=== PATIENT | female | born 1945 | race Caucasian/White ===

== ENCOUNTER 2016-05-14 20:14 | Emergency (ER) | payer MEDICARE, BC ==
[2016-05-14 20:32] VITALS: RESP 20
--- NOTE | 2016-05-14 21:19 | ED ---
General Adult HPI - General Source: patient, family, RN notes reviewed Mode of arrival: ambulatory Limitations: no limitations <Arnav Salcedo - Last Filed: 05/14/16 21:11> <Darinel Valderrama - Last Filed: 05/14/16 22:42> - General Chief complaint: Extremity Injury, Upper Stated complaint: Fall-Knee/Hand Injury - History of Present Illness Initial comments: Chief complaint and history of present illness 70-year-old female here with her . Patient reports that she slipped and fell 4 days ago at home injuring her left hand and left knee. Denies any head neck injuries. No loss of consciousness. Patient has ecchymosis to her left knee and both dorsal and volar surface of her nondominant left hand. (Arnav Salcedo) - Related Data Home Medications Medication Instructions Recorded Confirmed Propranolol HCl [Inderal] 60 mg PO DAILY 09/10/14 05/14/16 Previous Rx's Medication Instructions Recorded Ibuprofen [Motrin] 600 mg PO Q8HR PRN #20 tab 05/14/16 Allergies Allergy/AdvReac Type Severity Reaction Status Date / Time red dye Allergy Rash/Hives Verified 05/14/16 20:32 Review of Systems ROS Other: All systems not noted in ROS Statement are negative. <Arnav Salcedo - Last Filed: 05/14/16 21:11> ROS Other: All systems not noted in ROS Statement are negative. <Darinel Valderrama - Last Filed: 05/14/16 22:42> ROS Statement: Those systems with pertinent positive or pertinent negative responses have been documented in the HPI. Review of systems. Patient denying any visual acuity changes no headache no stiff neck no neck pain no chest pain shortness of breath. No GI or complaints or problems. No neuro deficits. Her complaints are pain mild swelling to her nondominant left hand which is also ecchymotic on both the dorsal and volar surface. Also mild discomfort and discoloration to her left patellar region. All systems otherwise reviewed. Past medical problems significant for type 2 diabetes controlled by diet. History of migraines. Hypercholesterolemia. Surgeries include appendectomy, tonsillectomy hysterectomy hiatal hernia. The patient's also a total right knee. The patient's family history significant for a sister had cancer of unknown type. Patient denies ALLERGIES she does not smoke denies alcohol use (Arnav Salcedo) Past Medical History Past Medical History: Diabetes Mellitus Additional Past Medical History / Comment(s): MIGRAINE HEADACHE History of Any Multi-Drug Resistant Organisms: None Reported Past Surgical History: Adenoidectomy, Appendectomy, Bladder Surgery, Hernia Repair, Hysterectomy, Joint Replacement, Tonsillectomy Additional Past Surgical History / Comment(s): HIATAL HERNIA REPAIR, RIGHT TOTAL KNEE,LEFT KNEE ARTHROSCOPIC, Past Anesthesia/Blood Transfusion Reactions: No Reported Reaction Past Psychological History: No Psychological Hx Reported Smoking Status: Former smoker Past Alcohol Use History: None Reported Past Drug Use History: None Reported - Past Family History Sister(s) Family Medical History: Cancer <Arnav Salcedo - Last Filed: 05/14/16 21:11> General Exam Limitations: no limitations <Arnav Salcedo - Last Filed: 05/14/16 21:11> <Darinel Valderrama - Last Filed: 05/14/16 22:42> - General Exam Comments Initial Comments: General: The patient is awake and alert, complaining of pain to her left nondominant hand. And discomfort to her left knee. Vital signs temp 97.2 pulse 55 respiratory rate 20 pulse ox 98% on room air with a blood pressure 191/77, this will be repeated before the patient leaves. Eye: Pupils are equal, round and reactive to light, extra-ocular movements are intact ; there is normal conjunctiva bilaterally. No signs of icterus. Ears, nose, mouth and throat: There are moist mucous membranes .. Neck: The neck is supple, there is no tenderness ., Full range of motion without complaint of discomfort. Cardiovascular: No chest wall pain, no complaint of any palpitations. Respiratory: No complaint of shortness of breath or respiratory difficulty. Gastrointestinal: No complaint of any abdominal pain. Back: There is no tenderness , full range of motion to her back. Musculoskeletal: All joints and extremities normal except for pain, mild swelling and ecchymosis to her nondominant left hand. Range of motion is near normal but with discomfort. Adam test normal left hand. No bony crepitus. Examination of left knee shows mild ecchymosis to the patella. No pain with varus valgus or drawer testing. No peripheral edema. No numbness no tingling. Neurological: No neuro deficits. Skin: No complaint of any rash. (Arnav Salcedo) Disposition <Arnav Salcedo - Last Filed: 05/14/16 21:11> <Darinel Valderrama - Last Filed: 05/14/16 22:42> Clinical Impression: Metacarpal bone fracture, Contusion Disposition: HOME SELF-CARE Condition: Good Instructions: Hand Fracture (ED), Contusion in Adults (ED) Prescriptions: Ibuprofen [Motrin] 600 mg PO Q8HR PRN #20 tab PRN Reason: Pain Referrals: Val Walsh MD [Primary Care Provider] - 1-2 days
--- NOTE | 2016-05-14 21:49 | XR ---
EXAMINATION TYPE: XR knee complete LT DATE OF EXAM: 05/14/2016 9:28 PM COMPARISON: NONE HISTORY: Inferior left patella pain after fall. TECHNIQUE: 3 radiographic views of the left knee were obtained. FINDINGS: Spurring is seen anteriorly of the distal femur projecting away from the joint space and ma y relate to a sessile osteochondroma. Additionally there is subtle irregularity of the trabecular pat tern of the visualized fibula and its metaphysis and diaphysis. Well-corticated fragment is seen at t he superior pole of the patella and may relate to prior fracture. No acute fracture or dislocation is seen. Mild calcific atheromatous changes are seen of the femoral artery. IMPRESSION: 1. No evidence of acute fracture or dislocation. 2. Well-corticated fragment of the superior patellar pole likely related to old healed fracture. 3. Spurring away from the joint space of the distal femur anteriorly that may relate to a sessile ost eochondroma. 4. Additional subtle trabecular irregularity of the visualized fibular proximal metaphysis and diaphy sis. Dedicated fibular radiographs are recommended on a nonemergent basis.
--- NOTE | 2016-05-14 21:54 | XR ---
EXAMINATION TYPE: XR hand complete LT DATE OF EXAM: 05/14/2016 9:28 PM COMPARISON: NONE HISTORY: Left hand pain after fall with bruising of the third through fifth metacarpals. TECHNIQUE: 3 radiographic views of the left hand were obtained. FINDINGS: There is a small fragment of bone avulsed from the volar aspect of the base of the middle t hird phalanx. Additionally there is an obliquely oriented minimally displaced fracture of the base of the fifth metacarpal with 1 mm radial displacement. Bone mineralization is slightly osteopenic. Over lying soft tissue swelling is seen of the third digit and radial aspect of the hand. IMPRESSION: 1. Minimally displaced oblique fracture of the base of the fifth metacarpal. 2. Volar plate avulsion injury at the proximal interphalangeal joint of the third digit.
[2016-05-14 22:57] VITALS: BP 168/71; PULSE 59; TEMP 97.9
== END 2016-05-14 22:55 | disposition home or self-care (01) ==
LOC: EC 20:14
DX: S62.317A Displaced fracture of base of fifth metacarpal bone, left hand, initial encounter for closed fracture (principal); S80.02XA Contusion of left knee, initial encounter; S61.203A Unspecified open wound of left middle finger without damage to nail, initial encounter; W01.0XXA Fall on same level from slipping, tripping and stumbling without subsequent striking against object, initial encounter; Z79.899 Other long term (current) drug therapy; Z87.891 Personal history of nicotine dependence
CPT/HCPCS: 29125; 99283

== ENCOUNTER 2016-11-21 07:50 | Day surgery (SDC) | payer MEDICARE, BC ==
[2016-11-17 11:18] VITALS: BMI 30.2
[~2016-11-21 07:50] MED LIST: LACTATED RINGERS 1,000 ML IV SCH
[2016-11-21 08:12] VITALS: RESP 16; TEMP 97.8
[2016-11-21] MEDS ORDERED: LIDOCAINE 1% 20 ML VIAL (10MG/ML) FOR IV START INTRADERMA ONE (08:25)
[2016-11-21 08:30] LABS: Glucose,Whole Blood 129 mg/dL (75-99)
[2016-11-21] MEDS ORDERED: LIDOCAINE 1% INJ 10MG/ML (20 ML MDV) ONE (08:47)
[2016-11-21] MEDS ORDERED: PROPOFOL 10 MG/ML 20 ML VIAL IV ONE (08:47)
[2016-11-21 09:25] VITALS: BP 127/65; PULSE 49
--- NOTE | 2016-11-22 14:35 | P.PCN ---
Date of Procedure: 11/21/16 Procedure(s) Performed: Procedure: Esophagogastroduodenoscopy and biopsy. Preoperative diagnosis: Nausea and epigastric pain. Postoperative diagnosis: Small amount of retained partially digested food in the stomach. Antral gastritis with prepyloric small ulceration but no mechanical obstruction to the gastric outlet. Biopsies were obtained. Brief clinical history: The patient is a 71-year-old female who is referred for this evaluation because of nausea and epigastric pain. The patient has history of reflux disease and had prior fundoplication. On a prior upper endoscopy in August 2014 she had evidence of hiatal hernia and low-grade distal esophagitis as well as gastritis. This evaluation is to assess for peptic ulcer disease, complicated reflux disease or other pathology. Procedure: With the patient on her left lateral decubitus position and after informed consent and adequate sedation, I passed the Olympus-GIF 160 video upper endoscope through the cricopharyngeus down the esophagus. The distal esophagus showed no obvious abnormalities. There was a small sliding hiatal hernia as previously described. In the retroflex view in the cardia one can appreciate the fundoplication that she had which appeared to be in place although in the forward-viewing view the hiatal hernia measuring between 1-2 cm is obviously seen as before. There was no restricting stricture or Mora's esophagus. The stomach was insufflated with air and inspected in detail including the retroflex view in the cardia as mentioned. There was some mottling and erythema in the antrum and in the prepyloric area there was edema and nodularity and a small ulceration with no mechanical obstruction to the gastric outlet. There was a small amount of partially digested food in the fundus of the stomach. Pyloric channel, duodenal bulb, post bulbar area and descending duodenum showed minimal erythema. Because of her symptoms I obtained multiple biopsies from the duodenum in addition to biopsies from the antrum and esophagus then the endoscope was withdrawn. The patient tolerated the procedure well. Plan: I summarized the findings to the patient and her family. Will await biopsy results and make further plans based on her course and biopsy results. She will follow-up with you as planned.
== END 2016-11-21 09:30 | disposition home or self-care (01) ==
LOC: ORWHC2ENDO 07:50
DX: K29.40 Chronic atrophic gastritis without bleeding (principal); K25.9 Gastric ulcer, unspecified as acute or chronic, without hemorrhage or perforation; K20.9 Esophagitis, unspecified; K44.9 Diaphragmatic hernia without obstruction or gangrene; I10 Essential (primary) hypertension; E78.5 Hyperlipidemia, unspecified; Z87.891 Personal history of nicotine dependence; E11.9 Type 2 diabetes mellitus without complications; Z79.84 Long term (current) use of oral hypoglycemic drugs; R63.4 Abnormal weight loss; Z79.82 Long term (current) use of aspirin; Z79.899 Other long term (current) drug therapy; Z88.8 Allergy status to other drugs, medicaments and biological substances; Z91.02 Food additives allergy status
CPT/HCPCS: 88305; 88342; 43239; J2001; J2704

== ENCOUNTER → 2016-11-24 | Outpatient (CLI) | payer MEDICARE, BC ==
--- NOTE | 2016-11-24 09:01 | US ---
EXAMINATION TYPE: US abdomen complete DATE OF EXAM: 11/24/2016 COMPARISON: NONE CLINICAL HISTORY: R11.0 Nausea. Patient has infection that led to bowel blockages since October, on antibiotic and had first BM today. EXAM MEASUREMENTS: Liver Length: 13.2 cm Gallbladder Wall: 0.1 cm CBD: 0.5 cm Spleen: 7.8 cm Right Kidney: 9.2 x 3.9 x 4.4 cm Left Kidney: 9.4 x 3.7 x 5.0 cm bowel gas and body habitus Pancreas: wnl Liver: wnl Gallbladder: wnl Evidence for sonographic Grissom's sign: no CBD: wnl Spleen: wnl Right Kidney: wnl Left Kidney: wnl Upper IVC: wnl Abd Aorta: wnl The liver is homogenous. The intrahepatic portion of the IVC and proximal abdominal aorta are within normal limits. There is no evidence of cholelithiasis. Common bile duct is unremarkable. The visu alized portions of the pancreas are homogenous. The spleen is unremarkable. Kidneys are symmetric a nd free of hydronephrosis. No renal lesions are seen. IMPRESSION: No distinct abnormality seen.
== END | disposition home or self-care (01) ==
LOC: RADUSWWP 08:07
DX: R11.0 Nausea (principal)
CPT/HCPCS: 76700

== ENCOUNTER 2017-06-12 13:29 | Observation (INO) | payer MEDICARE, BC ==
--- NOTE | 2017-06-12 13:59 | ED ---
General Adult HPI - General Chief complaint: Shortness of Breath Stated complaint: SOB Time Seen by Provider: 06/12/17 13:30 Source: patient, RN notes reviewed Mode of arrival: ambulatory Limitations: no limitations - History of Present Illness Initial comments: This 72-year-old female presents emergency Department stating for the last 2 weeks since she's gotten back from [place] she has had pressure on her chest and shortness of breath. Patient states she's done 2 courses of antibiotics. Patient states the chest pressure continues it's constant. Patient states the shortness of breath continues. Patient denies any fever chills per patient denies coughing up any sputum but she is coughing quite a bit. Patient states occasionally she has palpitations. Patient denies any lightheadedness dizziness or near syncopal episode. Patient states she feels very tired but no focal weakness or numbness. Patient denies any headache. Patient denies abdominal pain patient denies nausea vomiting diarrhea. - Related Data Home Medications Medication Instructions Recorded Confirmed Aspirin 81 mg PO DAILY 11/17/16 06/12/17 Atorvastatin [Lipitor] 10 mg PO HS 11/17/16 06/12/17 Lisinopril [Zestril] 5 mg PO DAILY 11/17/16 06/12/17 Multivit with Calcium,Iron,Min 1 tab PO DAILY 11/17/16 06/12/17 [Women's Multivitamin] [place]-3 Fatty Acids/Fish Oil [Fish 1 cap PO DAILY 11/17/16 06/12/17 Oil 1,000 mg Softgel] sitaGLIPtin [Januvia] 100 mg PO DAILY 11/17/16 06/12/17 Sulfamethox-Tmp 800-160Mg [Bactrim 1 tab PO BID 06/12/17 06/12/17 DS 800-160 mg] predniSONE 20 mg PO BID 06/12/17 06/12/17 Allergies Allergy/AdvReac Type Severity Reaction Status Date / Time red dye Allergy Rash/Hives Verified 06/12/17 14:44 quinine AdvReac affected Verified 06/12/17 14:44 vision,confusion Review of Systems ROS Statement: Those systems with pertinent positive or pertinent negative responses have been documented in the HPI. ROS Other: All systems not noted in ROS Statement are negative. Past Medical History Past Medical History: Diabetes Mellitus, Hypertension, Osteoarthritis (OA) Additional Past Medical History / Comment(s): MIGRAINES, nauseated w/eating, abd. pain recently, weight loss, IBS, SOB w/exertion, recent UTI, occasional issues w/bradycardia History of Any Multi-Drug Resistant Organisms: None Reported Past Surgical History: Adenoidectomy, Appendectomy, Bladder Surgery, Hernia Repair, Hysterectomy, Joint Replacement, Tonsillectomy Additional Past Surgical History / Comment(s): HIATAL HERNIA REPAIR, RIGHT TOTAL KNEE,LEFT KNEE ARTHROSCOPIC Past Anesthesia/Blood Transfusion Reactions: No Reported Reaction Past Psychological History: No Psychological Hx Reported Smoking Status: Former smoker Past Alcohol Use History: None Reported Past Drug Use History: None Reported - Past Family History Sister(s) Family Medical History: Cancer General Exam - General Exam Comments Initial Comments: GENERAL: Patient is well-developed and well-nourished. Patient is nontoxic and well- hydrated and is in mild distress. ENT: Neck is soft and supple. No significant lymphadenopathy is noted. Oropharynx is clear. Moist mucous membranes. Neck has full range of motion without eliciting any pain. EYES: The sclera were anicteric and conjunctiva were pink and moist. Extraocular movements were intact and pupils were equal round and reactive to light. Eyelids were unremarkable. PULMONARY: Unlabored respirations. Good breath sounds bilaterally. No audible rales rhonchi or wheezing was noted. CARDIOVASCULAR: There is a regular rate and rhythm without any murmurs gallops or rubs. ABDOMEN: Soft and nontender with normal bowel sounds. No palpable organomegaly was noted. There is no palpable pulsatile mass. SKIN: Skin is clear with no lesions or rashes and otherwise unremarkable. NEUROLOGIC: Patient is alert and oriented x3. Cranial nerves II through XII are grossly intact. Motor and sensory are also intact. Normal speech, volume and content. Symmetrical smile. MUSCULOSKELETAL: Normal extremities with adequate strength and full range of motion. LYMPHATICS: No significant lymphadenopathy is noted PSYCHIATRIC: Normal psychiatric evaluation. Limitations: no limitations Course Vital Signs 06/12/17 13:30 Temperature 98 F Pulse Rate 73 Respiratory 20 Rate Blood Pressure 123/71 O2 Sat by Pulse 98 Oximetry Medical Decision Making - Medical Decision Making EKG shows normal sinus rhythm at 62 bpm DC interval 208 QRS is 96 Q-T intervals 416 QTC is 422 per patient's EKG shows no ST segment elevation or depression or T wave abnormalities are noted. Chest x-ray shows no acute abnormality. Patient describes her chest pain and shortness of breath as worsening with exertion I spoke with Dr. Ziegler he agreed to admit the patient admitted the patient and wrote admitting orders - Lab Data Result diagrams: 06/12/17 14:00 06/12/17 14:00 Lab Results 06/12/17 06/12/17 06/12/17 Range/Units 14:00 14:00 14:00 WBC 7.5 (3.8-10.6) k/uL RBC 4.00 (3.80-5.40) m/uL Hgb 12.7 (11.4-16.0) gm/dL Hct 37.7 (34.0-46.0) % MCV 94.1 (80.0-100.0) fL MCH 31.7 (25.0-35.0) pg MCHC 33.7 (31.0-37.0) g/dL RDW 12.0 (11.5-15.5) % Plt Count 297 (150-450) k/uL Neutrophils % 87 % Lymphocytes % 8 % Monocytes % 5 % Eosinophils % 0 % Basophils % 0 % Neutrophils # 6.5 (1.3-7.7) k/uL Lymphocytes # 0.6 L (1.0-4.8) k/uL Monocytes # 0.4 (0-1.0) k/uL Eosinophils # 0.0 (0-0.7) k/uL Basophils # 0.0 (0-0.2) k/uL PT (9.0-12.0) sec INR (<1.2) APTT (22.0-30.0) sec D-Dimer (<0.60) mg/L FEU Sodium 134 L (137-145) mmol/L Potassium 5.3 H (3.5-5.1) mmol/L Chloride 99 (98-107) mmol/L Carbon Dioxide 20 L (22-30) mmol/L Anion Gap 15 mmol/L BUN 19 H (7-17) mg/dL Creatinine 1.03 (0.52-1.04) mg/dL Est GFR (CKD-EPI)AfAm 62 (>60 ml/min/1.73 sqM) Est GFR (CKD-EPI)NonAf 54 (>60 ml/min/1.73 sqM) Glucose 313 H (74-99) mg/dL Calcium 9.9 (8.4-10.2) mg/dL Magnesium 1.9 (1.6-2.3) mg/dL Total Bilirubin 0.6 (0.2-1.3) mg/dL AST 27 (14-36) U/L ALT 39 (9-52) U/L Alkaline Phosphatase 74 (38-126) U/L Total Creatine Kinase 28 L (30-135) U/L CK-MB (CK-2) 1.0 (0.0-2.4) ng/mL CK-MB (CK-2) Rel Index 3.6 Troponin I <0.012 (0.000-0.034) ng/mL NT-Pro-B Natriuret Pep pg/mL Total Protein 6.7 (6.3-8.2) g/dL Albumin 4.1 (3.5-5.0) g/dL 06/12/17 06/12/17 Range/Units 14:00 14:00 WBC (3.8-10.6) k/uL RBC (3.80-5.40) m/uL Hgb (11.4-16.0) gm/dL Hct (34.0-46.0) % MCV (80.0-100.0) fL MCH (25.0-35.0) pg MCHC (31.0-37.0) g/dL RDW (11.5-15.5) % Plt Count (150-450) k/uL Neutrophils % % Lymphocytes % % Monocytes % % Eosinophils % % Basophils % % Neutrophils # (1.3-7.7) k/uL Lymphocytes # (1.0-4.8) k/uL Monocytes # (0-1.0) k/uL Eosinophils # (0-0.7) k/uL Basophils # (0-0.2) k/uL PT 10.6 (9.0-12.0) sec INR 1.1 (<1.2) APTT 20.0 L (22.0-30.0) sec D-Dimer 0.38 (<0.60) mg/L FEU Sodium (137-145) mmol/L Potassium (3.5-5.1) mmol/L Chloride (98-107) mmol/L Carbon Dioxide (22-30) mmol/L Anion Gap mmol/L BUN (7-17) mg/dL Creatinine (0.52-1.04) mg/dL Est GFR (CKD-EPI)AfAm (>60 ml/min/1.73 sqM) Est GFR (CKD-EPI)NonAf (>60 ml/min/1.73 sqM) Glucose (74-99) mg/dL Calcium (8.4-10.2) mg/dL Magnesium (1.6-2.3) mg/dL Total Bilirubin (0.2-1.3) mg/dL AST (14-36) U/L ALT (9-52) U/L Alkaline Phosphatase (38-126) U/L Total Creatine Kinase (30-135) U/L CK-MB (CK-2) (0.0-2.4) ng/mL CK-MB (CK-2) Rel Index Troponin I (0.000-0.034) ng/mL NT-Pro-B Natriuret Pep 216 pg/mL Total Protein (6.3-8.2) g/dL Albumin (3.5-5.0) g/dL Disposition Clinical Impression: Chest pain on exertion, Dyspnea Disposition: ADMITTED IP TO THIS HOSP Referrals: Val Walsh MD [Primary Care Provider] - 1-2 days Time of Disposition: 15:20
--- NOTE | 2017-06-12 14:21 | XR ---
EXAMINATION TYPE: XR chest 2V DATE OF EXAM: 06/12/2017 COMPARISON: NONE HISTORY: SOB and chest pain. TECHNIQUE: Frontal and lateral views of the chest are obtained. FINDINGS: There is no focal air space opacity, pleural effusion, or pneumothorax seen. The cardiac silhouette size is within normal limits with atherosclerotic change in aorta. The osseous structure s are demineralized. Clips near [place]. IMPRESSION: No acute cardiopulmonary process.
[2017-06-12 14:28] LABS: Albumin 4.1 g/dL (3.5-5.0); Calcium 9.9 mg/dL (8.4-10.2); Magnesium 1.9 mg/dL (1.6-2.3); Potassium 5.3 mmol/L (3.5-5.1); Total Bilirubin 0.6 mg/dL (0.2-1.3); Total Protein 6.7 g/dL (6.3-8.2)
[2017-06-12 14:30] LABS: Basophils % (A) 0 %; Eosinophils % (A) 0 %; HCT 37.7 % (34.0-46.0); HGB 12.7 gm/dL (11.4-16.0); Lymphocytes # (A) 0.6 k/uL (1.0-4.8); Lymphocytes % (A) 8 %; MCH 31.7 pg (25.0-35.0); MCHC 33.7 g/dL (31.0-37.0); MCV 94.1 fL (80.0-100.0); Mean Platelet Volume 7.2; Monocytes # (A) 0.4 k/uL (0-1.0); Monocytes % (A) 5 %; Neutrophils # (A) 6.5 k/uL (1.3-7.7); Neutrophils % (A) 87 %; Platelet Count 297 k/uL (150-450); WBC 7.5 k/uL (3.8-10.6)
[2017-06-12 14:44] LABS: Creatine Kinase 28 U/L (30-135)
[2017-06-12 14:46] LABS: D-Dimer 0.38 mg/L FEU (<0.60); INR 1.1 (<1.2); Prothrombin Time 10.6 sec (9.0-12.0)
[2017-06-12 14:56] LABS: Troponin I <0.012 ng/mL (0.000-0.034)
[2017-06-12] MEDS ORDERED: NITROGLYCERIN SL TABS 0.4 MG TAB SUBLINGUAL PRN (15:21)
--- NOTE | 2017-06-12 16:49 | P.HPIM ---
History of Present Illness H&P Date: 06/12/17 Chief Complaint: Chest pressure and shortness of breath Cindy Huerta is a 72-year-old female patient of Dr. begum who presented to [facility] emergency room with a chief complaint of chest pressure and shortness of breath and cough, patient states that her symptoms started 2 weeks ago when she returned from a trip in [place], she was seen by her primary care physician and was prescribed 2 courses of antibiotic for sinusitis and bronchitis, however she continued to have worsening shortness of breath and chest discomfort, she decided to come to emergency room for further evaluation. Patient stated that she smoked for a short while in her early adulthood she quit 53 years ago she was never diagnosed with asthma or emphysema. She was exposed to smoke in the casino in [place]. Patient denies ever having any heart problems she denies any history of coronary artery disease no history of congestive heart failure or valvular heart disease. Possibility of pulmonary embolism was entertained in the emergency room patient had a d-dimer that was normal at 0.38. Patient was admitted to medical floor for further evaluation and treatment cardiology consultation was requested. Past Medical History Past Medical History: Diabetes Mellitus, Hypertension, Osteoarthritis (OA) Additional Past Medical History / Comment(s): MIGRAINES, nauseated w/eating, abd. pain recently, weight loss, IBS, SOB w/exertion, recent UTI, occasional issues w/bradycardia History of Any Multi-Drug Resistant Organisms: None Reported Past Surgical History: Adenoidectomy, Appendectomy, Bladder Surgery, Hernia Repair, Hysterectomy, Joint Replacement, Tonsillectomy Additional Past Surgical History / Comment(s): HIATAL HERNIA REPAIR, RIGHT TOTAL KNEE,LEFT KNEE ARTHROSCOPIC Past Anesthesia/Blood Transfusion Reactions: No Reported Reaction Past Psychological History: No Psychological Hx Reported Smoking Status: Former smoker Past Alcohol Use History: None Reported Past Drug Use History: None Reported - Past Family History Sister(s) Family Medical History: Cancer Medications and Allergies Home Medications Medication Instructions Recorded Confirmed Type Aspirin 81 mg PO DAILY 11/17/16 06/12/17 History Atorvastatin [Lipitor] 10 mg PO HS 11/17/16 06/12/17 History Lisinopril [Zestril] 5 mg PO DAILY 11/17/16 06/12/17 History Multivit with Calcium,Iron,Min 1 tab PO DAILY 11/17/16 06/12/17 History [Women's Multivitamin] [place]-3 Fatty Acids/Fish Oil [Fish 1 cap PO DAILY 11/17/16 06/12/17 History Oil 1,000 mg Softgel] sitaGLIPtin [Januvia] 100 mg PO DAILY 11/17/16 06/12/17 History Sulfamethox-Tmp 800-160Mg [Bactrim 1 tab PO BID 06/12/17 06/12/17 History DS 800-160 mg] predniSONE 20 mg PO BID 06/12/17 06/12/17 History Allergies Allergy/AdvReac Type Severity Reaction Status Date / Time red dye Allergy Rash/Hives Verified 06/12/17 14:44 quinine AdvReac affected Verified 06/12/17 14:44 vision,confusion Physical Exam Vitals: Vital Signs Temp Pulse Pulse Resp BP BP Pulse Ox 06/12/17 16:09 97.8 F 64 18 148/99 99 06/12/17 15:47 97.8 F 60 18 167/81 97 06/12/17 15:00 70 18 150/68 98 06/12/17 13:30 98 F 73 20 123/71 98 Intake and Output 06/12/17 06/12/17 06/12/17 06:59 14:59 22:59 Other: Weight 69.853 kg 72.2 kg In general patient is alert and oriented 3 in no apparent distress HEENT head normocephalic and atraumatic Neck is supple no JVD no goiter no lymphadenopathy no carotid bruit Chest exam reveals a few scattered crackles no wheezing Cardiac exam reveals regular heart sounds S1 and S2 no gallops no murmurs Abdomen is soft nontender no organomegaly with normal bowel sounds Extremity exam reveals no edema no cyanosis or clubbing Neurological examination reveals no gross focal deficit Results CBC & Chem 7: 06/12/17 14:00 06/12/17 14:00 Labs: Abnormal Lab Results - Last 24 Hours (Table) 06/12/17 06/12/17 06/12/17 Range/Units 14:00 14:00 14:00 Lymphocytes # 0.6 L (1.0-4.8) k/uL APTT (22.0-30.0) sec Sodium 134 L (137-145) mmol/L Potassium 5.3 H (3.5-5.1) mmol/L Carbon Dioxide 20 L (22-30) mmol/L BUN 19 H (7-17) mg/dL Glucose 313 H (74-99) mg/dL Total Creatine Kinase 28 L (30-135) U/L 06/12/17 Range/Units 14:00 Lymphocytes # (1.0-4.8) k/uL APTT 20.0 L (22.0-30.0) sec Sodium (137-145) mmol/L Potassium (3.5-5.1) mmol/L Carbon Dioxide (22-30) mmol/L BUN (7-17) mg/dL Glucose (74-99) mg/dL Total Creatine Kinase (30-135) U/L Assessment and Plan Plan: #1 chest pressure and discomfort for the last 2 weeks, patient was evaluated in the emergency room EKG was negative troponin was within normal limits and d- dimer within normal limits she was admitted to 24-hour observation cardiology consult was initiated. Will check echocardiogram #2 shortness of breath, chest x-ray is within normal limits, will check pulmonary function test. #3 underlying history of hypertension maintained on Zestril will resume #4 underlying history of hyperlipidemia maintained on Lipitor continue #5 underlying history of [id number] diabetes mellitus maintained on Januvia 100 mg daily Will continue, will check hemoglobin A1c Will cover was insulin to sliding scale. At this time plan is to check echocardiogram, check pulmonary function test, await cardiology consult will follow closely
[2017-06-12] MEDS ORDERED: ASPIRIN 81 MG PO SCH (17:00)
[2017-06-12 17:14] LABS: Glucose,Whole Blood 210 mg/dL (75-99)
[2017-06-12] MEDS: INSULIN ASPART 100 UNIT/ML 1 ML 10 ML VIAL SQ SCH (18:17)
[2017-06-12] MEDS: cefTRIAXone IN SWFI 1,000 MG/10 ML SYRINGE IVP SCH (18:33)
[2017-06-12] MEDS: NITROGLYCERIN OINT 1 INCH/GM PACKET TOPICAL SCH (18:33)
[2017-06-12 20:46] LABS: Glucose,Whole Blood 174 mg/dL (75-99)
[2017-06-12] MEDS: ENOXAPARIN 40 MG/0.4 ML SYRINGE SQ SCH (20:53)
[2017-06-12] MEDS: guaiFENesin 600 MG TABLET.ER PO SCH (20:53)
[2017-06-12] MEDS ORDERED: FAMOTIDINE 20 MG TAB PO SCH (21:00)
[2017-06-12] MEDS ORDERED: ATORVASTATIN 10 MG TAB PO SCH (21:00)
[2017-06-12] MEDS ORDERED: SULFAMETHOX-TMP 800-160MG 1 EACH TAB PO SCH (21:00)
[2017-06-12 21:04] LABS: Creatine Kinase 26 U/L (30-135)
[2017-06-12 21:18] LABS: Creatine Kinase MB 0.7 ng/mL (0.0-2.4); Troponin I <0.012 ng/mL (0.000-0.034)
[2017-06-13] MEDS: NITROGLYCERIN OINT 1 INCH/GM PACKET TOPICAL SCH ×2 (00:26→05:00)
[2017-06-13 03:10] LABS: Cholesterol 157 mg/dL (<200); HDL Cholesterol 48 mg/dL (40-60); LDL Cholesterol,Calculated 60 mg/dL (0-99); Triglycerides 244 mg/dL (<150)
[2017-06-13 03:20] LABS: Creatine Kinase 23 U/L (30-135)
[2017-06-13 03:33] LABS: Creatine Kinase MB 0.7 ng/mL (0.0-2.4); Troponin I <0.012 ng/mL (0.000-0.034)
[2017-06-13 06:47] LABS: Glucose,Whole Blood 123 mg/dL (75-99)
[2017-06-13 08:15] VITALS: RESP 18
[2017-06-13] MEDS: INSULIN ASPART 100 UNIT/ML 1 ML 10 ML VIAL SQ SCH ×2 (08:25→15:40)
[2017-06-13] MEDS ORDERED: LINAGLIPTIN 5 MG TABLET PO SCH (09:00)
[2017-06-13] MEDS ORDERED: ASPIRIN 325 MG TAB PO SCH (09:00)
[2017-06-13] MEDS ORDERED: OMEGA 3 1000MG PO SCH (09:00)
[2017-06-13] MEDS ORDERED: LISINOPRIL 5 MG TAB PO SCH (09:00)
[2017-06-13] MEDS ORDERED: REGADENOSON 0.4 MG/5 ML SYRINGE IV ONE (09:39)
[2017-06-13] MEDS ORDERED: AMINOPHYLLINE 500 MG/20 ML VIAL IV PRN (09:39)
[2017-06-13] MEDS ORDERED: ASPIRIN 81 MG PO SCH (09:45)
--- NOTE | 2017-06-13 09:58 | P.CRDCN ---
History of Present Illness Consult date: 06/13/17 History of present illness: This is Buster is a pleasant 72-year-old female past medical history significant for hypertension, dyslipidemia and diabetes mellitus. We've been asked to see the patient in consultation for complaints of chest pain. She denies history of coronary artery disease and has never seen a broth setter for any reason. She states approximately 2 weeks ago she was on vacation in [place] and she had a heavy sensation in her chest. This was intermittent and not associated with any other symptoms. There is no radiation of the pain at that time. After arriving home she saw her primary care physician in the office and was diagnosed with sinus infection started on oral steroids and antibiotics. Throughout the first week she continued to have heavy sensation in her chest as well as shortness of breath associated with exertion. She states she would start exerting herself she would start coughing and becoming acutely short of breath. After these symptoms started she started with a heaviness in her chest as well. It seemed as if she could not catch her breath. She denies radiation of the pain to her arms neck back or jaw. She denies associated dizziness, palpitations, nausea, vomiting or diaphoresis. She failed to feel any better after the antibiotics were completed saw her primary care physician again and was started on a second antibiotic. She is 4 days into that second antibiotic and is feeling no better. She states yesterday she was in the yard helping her with mild yard cleanup-type activities and she again felt acutely short of breath with this mild exertion started coughing and had a heaviness in her chest. EKG reveals sinus mechanism with first-degree AV block and nonspecific ST abnormalities noted. There is no old for comparison. Chest x-ray is negative for an acute cardiopulmonary process. Laboratory data reviewed, hemoglobin 12.7, platelets 297, d-dimer 0.38, sodium 134, potassium 5.3, creatinine 1.03, cardiac enzymes negative 3, LDL 60, HDL 48. Current cardiac medications include aspirin 81 mg daily, atorvastatin 10 mg daily, lisinopril 5 mg daily. She also takes Januvia. Review of Systems At this time my exam: CONSTITUTIONAL: Denies fever. Denies chills. EYES: Denies blurred vision. Denies vision changes. Denies eye pain. EARS, NOSE, MOUTH & THROAT: Denies headache. Denies sore throat. Denies ear pain. CARDIOVASCULAR: Denies chest pain. Complains of exertional shortness of breath. Denies orthopnea. Denies PND. Denies palpitations. RESPIRATORY: Complains of dry cough. GASTROINTESTINAL: Denies abdominal pain. Denies diarrhea. Denies constipation. Denies nausea. Denies vomiting. MUSCULOSKELETAL: Denies myalgias. INTEGUMENTARY: Denies pruitis. Denies rash. NEUROLOGIC: Denies numbness. Denies tingling. Denies weakness. PSYCHIATRIC: Denies anxiety. Denies depression. ENDOCRINE: Denies fatigue. Denies weight change. Denies polydipsia. Denies polyurina. GENITOURINARY: Denies burning, hematuria or urgency with micturation. HEMATOLOGIC: Denies history of anemia. Denies bleeding. Past Medical History Past Medical History: Diabetes Mellitus, Hypertension, Osteoarthritis (OA) Additional Past Medical History / Comment(s): MIGRAINES, nauseated w/eating, abd. pain recently, weight loss, IBS, SOB w/exertion, recent UTI, occasional issues w/bradycardia History of Any Multi-Drug Resistant Organisms: None Reported Past Surgical History: Adenoidectomy, Appendectomy, Bladder Surgery, Hernia Repair, Hysterectomy, Joint Replacement, Tonsillectomy Additional Past Surgical History / Comment(s): HIATAL HERNIA REPAIR, RIGHT TOTAL KNEE,LEFT KNEE ARTHROSCOPIC Past Anesthesia/Blood Transfusion Reactions: No Reported Reaction Past Psychological History: No Psychological Hx Reported Smoking Status: Former smoker Past Alcohol Use History: None Reported Past Drug Use History: None Reported - Past Family History Sister(s) Family Medical History: Cancer Medications and Allergies Home Medications Medication Instructions Recorded Confirmed Type Aspirin 81 mg PO DAILY 11/17/16 06/12/17 History Atorvastatin [Lipitor] 10 mg PO HS 11/17/16 06/12/17 History Lisinopril [Zestril] 5 mg PO DAILY 11/17/16 06/12/17 History Multivit with Calcium,Iron,Min 1 tab PO DAILY 11/17/16 06/12/17 History [Women's Multivitamin] [place]-3 Fatty Acids/Fish Oil [Fish 1 cap PO DAILY 11/17/16 06/12/17 History Oil 1,000 mg Softgel] sitaGLIPtin [Januvia] 100 mg PO DAILY 10/05/17 04/30/18 History Sulfamethox-Tmp 800-160Mg [Bactrim 1 tab PO BID 06/12/17 06/12/17 History DS 800-160 mg] predniSONE 20 mg PO BID 06/12/17 06/12/17 History Allergies Allergy/AdvReac Type Severity Reaction Status Date / Time red dye Allergy Rash/Hives Verified 06/12/17 14:44 quinine AdvReac affected Verified 06/12/17 14:44 vision,confusion Physical Exam Vitals: Vital Signs Temp Pulse Pulse Resp BP BP Pulse Ox 06/13/17 07:16 97 06/13/17 04:00 52 L 16 06/13/17 03:36 98.5 F 57 L 16 97/57 98 06/13/17 00:00 56 L 16 06/12/17 23:35 98.7 F 63 16 104/59 96 06/12/17 20:00 98.8 F 58 L 18 104/61 93 L 06/12/17 17:21 22 06/12/17 16:09 97.8 F 64 18 148/99 99 06/12/17 15:47 97.8 F 60 18 167/81 97 06/12/17 15:00 70 18 150/68 98 06/12/17 13:30 98 F 73 20 123/71 98 Intake and Output 06/12/17 06/13/17 06/13/17 22:59 06:59 14:59 Intake Total 450 Balance 450 Intake: Oral 450 Other: # Voids 2 Weight 72.2 kg Blood pressure 112/71 heart rate 61 afebrile maintaining oxygen and saturation on room air GENERAL: This is a 72-year-old female in no apparent distress at the time of my examination. HEENT: Head is atraumatic, normocephalic. Pupils are equal, round. Sclerae anicteric. Conjunctivae are clear. Mucous membranes of the mouth are moist. Neck is supple. There is no jugular venous distention. No carotid bruit is heard. LUNGS: Clear to auscultation no wheezes, rales or rhonchi. No chest wall tenderness is noted on palpation or with deep breathing. HEART: Regular rate and rhythm without murmurs, rubs or gallops. S1 and S2 heard. ABDOMEN: Soft, nontender. Bowel sounds are heard. No organomegaly noted. EXTREMITIES: No evidence of peripheral edema and no calf tenderness noted. VASCULAR: Radial and dorsalis pedis pulses palpated, no evidence of clubbing. NEUROLOGIC: Patient is awake, alert and oriented x3. Results 06/12/17 14:00 06/12/17 14:00 Cardiac Enzymes 06/12/17 06/12/17 06/12/17 Range/Units 14:00 14:00 19:49 AST 27 (14-36) U/L CK-MB (CK-2) 1.0 0.7 (0.0-2.4) ng/mL Troponin I <0.012 <0.012 (0.000-0.034) ng/mL 06/13/17 Range/Units 02:31 AST (14-36) U/L CK-MB (CK-2) 0.7 (0.0-2.4) ng/mL Troponin I <0.012 (0.000-0.034) ng/mL Coagulation 06/12/17 Range/Units 14:00 PT 10.6 (9.0-12.0) sec APTT 20.0 L (22.0-30.0) sec Lipids 06/13/17 Range/Units 02:31 Triglycerides 244 H (<150) mg/dL Cholesterol 157 (<200) mg/dL HDL Cholesterol 48 (40-60) mg/dL CBC 06/12/17 Range/Units 14:00 WBC 7.5 (3.8-10.6) k/uL RBC 4.00 (3.80-5.40) m/uL Hgb 12.7 (11.4-16.0) gm/dL Hct 37.7 (34.0-46.0) % Plt Count 297 (150-450) k/uL Comprehensive Metabolic Panel 06/12/17 Range/Units 14:00 Sodium 134 L (137-145) mmol/L Potassium 5.3 H (3.5-5.1) mmol/L Chloride 99 (98-107) mmol/L Carbon Dioxide 20 L (22-30) mmol/L BUN 19 H (7-17) mg/dL Creatinine 1.03 (0.52-1.04) mg/dL Glucose 313 H (74-99) mg/dL Calcium 9.9 (8.4-10.2) mg/dL AST 27 (14-36) U/L ALT 39 (9-52) U/L Alkaline Phosphatase 74 (38-126) U/L Total Protein 6.7 (6.3-8.2) g/dL Albumin 4.1 (3.5-5.0) g/dL Current Medications Generic Name Dose Route Start Last Admin Trade Name Freq PRN Reason Stop Dose Admin Aspirin 325 mg 06/13/17 09:00 Aspirin PO DAILY [facility] Atorvastatin Calcium 10 mg 06/12/17 21:00 06/12/17 20:53 Lipitor PO 10 mg HS YOUSIF Administration Ceftriaxone Sodium 1,000 mg 06/12/17 16:45 06/12/17 18:33 Rocephin IVP 1,000 mg Q24HR YOUSIF Administration Enoxaparin Sodium 40 mg 06/12/17 17:00 06/12/17 20:53 Lovenox SQ 40 mg DAILY YOUSIF Administration Famotidine 20 mg 06/12/17 21:00 06/12/17 20:53 Pepcid PO 20 mg BID [facility] Administration Guaifenesin 600 mg 06/12/17 21:00 06/12/17 20:53 Mucinex PO 600 mg Q12HR [facility] Administration Insulin Aspart 0 unit 06/12/17 17:30 06/12/17 18:17 Novolog SQ 3 unit AC-TID [facility] Administration Protocol Linagliptin 5 mg 06/13/17 09:00 Tradjenta PO DAILY [facility] Lisinopril 5 mg 06/13/17 09:00 Zestril PO DAILY [facility] Multivitamins 1 each 06/13/17 12:00 Theragran PO DAILY@1200 [facility] Nitroglycerin 1 inch 06/12/17 18:00 06/13/17 05:00 Nitro-Bid Oint TOPICAL Not Given Q6HR [facility] Nitroglycerin 0.4 mg 06/12/17 15:21 Nitrostat SUBLINGUAL Q5M PRN Chest Pain [place] 3 1000mg 1 cap 06/13/17 09:00 PO DAILY YOUSIF Intake and Output 06/12/17 06/13/17 06/13/17 22:59 06:59 14:59 Intake Total 450 Balance 450 Intake: Oral 450 Other: # Voids 2 Weight 72.2 kg 06/12/17 14:00 06/12/17 14:00 Assessment and Plan Assessment: ASSESSMENT 1. Precordial chest pain with shortness of breath and cough. An acute coronary event has been ruled out. 2. Hypertension currently controlled on lisinopril 3. Diabetes mellitus 4. Dyslipidemia, currently on atorvastatin PLAN Discontinue Nitropaste. Repeat potassium. Consider changing antihypertensive medication of potassium is high on repeat. Obtain 2-D echocardiogram and Doppler study to assess cardiac structure and function. Perform Lexiscan stress test to assess for reversible cardiac ischemia. Continue with atorvastatin 10 mg daily, lisinopril 5 mg daily, and aspirin 81 mg daily. Further recommendations to follow based on diagnostic tests findings. Thank you kindly for this consultation. Nurse Practitioner note has been reviewed, I agree with a documented findings and plan of care. Patient was seen and examined.
[2017-06-13 10:48] LABS: Albumin 3.2 g/dL (3.5-5.0); Calcium 9.1 mg/dL (8.4-10.2); Potassium 4.5 mmol/L (3.5-5.1); Total Bilirubin 0.4 mg/dL (0.2-1.3); Total Protein 5.8 g/dL (6.3-8.2)
[2017-06-13 10:51] LABS: Basophils % (A) 0 %; Eosinophils % (A) 0 %; HCT 35.5 % (34.0-46.0); HGB 11.9 gm/dL (11.4-16.0); Lymphocytes # (A) 3.1 k/uL (1.0-4.8); Lymphocytes % (A) 26 %; MCH 32.2 pg (25.0-35.0); MCHC 33.5 g/dL (31.0-37.0); Mean Platelet Volume 8.4; Monocytes # (A) 0.8 k/uL (0-1.0); Monocytes % (A) 7 %; Neutrophils # (A) 7.7 k/uL (1.3-7.7); Neutrophils % (A) 64 %; Platelet Count 228 k/uL (150-450); WBC 12.1 k/uL (3.8-10.6)
--- NOTE | 2017-06-13 11:37 | ECHOF ---
Referral Reason:chest pain MEASUREMENTS -------- HEIGHT: 154.9 cm WEIGHT: 72.1 kg BP: 148/99 RVIDd: 2.4 cm (< 3.3) IVSd: 1.0 cm (0.6 - 1.1) LVIDd: 4.9 cm (3.9 - 5.3) LVPWd: 1.1 cm (0.6 - 1.1) IVSs: 1.7 cm LVIDs: 3.5 cm LVPWs: 1.6 cm LAESV Index (A-L): 23.38 ml/m Ao Diam: 2.8 cm (2.0 - 3.7) AV Cusp: 1.3 cm (1.5 - 2.6) LA Diam: 2.8 cm (2.7 - 3.8) MV E Filipe: 0.95 m/s MV DecT: 401 ms MV A Filipe: 1.56 m/s MV E/A Ratio: 0.61 RAP: 5.00 mmHg RVSP: 11.74 mmHg FINDINGS -------- Sinus rhythm. This was a technically adequate study. The left ventricular size is normal. Left ventricular wall thickness is normal. Overall left vent ricular systolic function is normal with, an EF between 55 - 60 %. The right ventricle is normal in size and function. Normal LA size by volume 22+/-6 ml/m2. The right atrium is normal in size. There is mild aortic valve sclerosis. There is no evidence of aortic regurgitation. There is no e vidence of aortic stenosis. The mitral valve leaflets are mildly thickened. There is trace mitral regurgitation. Trace tricuspid regurgitation present. Right ventricular systolic pressure is normal at < 35 mmHg. There is no evidence of pulmonary hypertension. The pulmonic valve was not well visualized. The aortic root size is normal. Normal inferior vena cava with normal inspiratory collapse consistent with estimated right atrial pre ssure of 5 mmHg. There is no pericardial effusion. CONCLUSIONS -------- 1. Sinus rhythm. 2. This was a technically adequate study. 3. The left ventricular size is normal. 4. Left ventricular wall thickness is normal. 5. Overall left ventricular systolic function is normal with, an EF between 55 - 60 %. 6. Normal LA size by volume 22+/-6 ml/m2. 7. There is mild aortic valve sclerosis. 8. The mitral valve leaflets are mildly thickened. 9. There is trace mitral regurgitation. 10. Trace tricuspid regurgitation present. 11. Right ventricular systolic pressure is normal at < 35 mmHg. 12. There is no evidence of pulmonary hypertension. 13. The pulmonic valve was not well visualized. 14. The aortic root size is normal. 15. There is no pericardial effusion. SHEET METAL HELPER: Lavelle Malloy RDCS
[2017-06-13] MEDS: cefTRIAXone IN SWFI 1,000 MG/10 ML SYRINGE IVP SCH (11:58)
[2017-06-13] MEDS: ENOXAPARIN 40 MG/0.4 ML SYRINGE SQ SCH (11:59)
[2017-06-13] MEDS: guaiFENesin 600 MG TABLET.ER PO SCH (11:59)
[2017-06-13] MEDS ORDERED: MULTIVITAMINS, THERA 1 EACH TAB PO SCH (12:00)
[2017-06-13 12:01] VITALS: BP 137/76; PULSE 63; TEMP 97.6
--- NOTE | 2017-06-13 12:04 | NM ---
EXAMINATION TYPE: NM stress lexiscan cardiolite DATE OF EXAM: 06/13/2017 COMPARISON: NONE HISTORY: Chest pain per order. History of tobacco use quit 52 years ago, hypercholesterolemia, fami ly history of heart attack, and diabetes presents with chest pain, palpitations, and difficulty in b reathing. TECHNIQUE: After the intravenous administration of 9.23 mCi Tc 99m Sestamibi - Cardiolite resting SP ECT images acquired 45 minutes post injection. The patient received 0.4mg Lexiscan, 23.9 mCi Tc 99m Sestamibi - Stress images obtained [address] injection FINDINGS: Review of stress and rest SPECT images demonstrates no distinct perfusion abnormality. Gated analysi s shows normal wall motion with an estimated left ventricular ejection fraction of 72 %. IMPRESSION: No convincing scintigraphic evidence for reversible ischemia.
--- NOTE | 2017-06-13 12:09 | EST ---
EXERCISE STRESS DATE OF SERVICE: 06/13/2017 AGE: 72 SEX: F HT: 5'1" WT: 157 PROTOCOL: Lexiscan Cardiolite Stress test HEART RATE REST: 60 BLOOD PRESSURE REST: 144/69 MAXIMUM HEART RATE ACHIEVED: 97 MAXIMUM BLOOD PRESSURE: 144/69 INDICATIONS: Chest pain. CLINICAL INFORMATION: STRESS DATA: Pretesting physical examination showed a heart rate of 60, pressure is 144/69 mmHg. Baseline EKG showed sinus mechanism; 0.4 mg of Lexiscan was given to the patient over 15 seconds per protocol. The max heart rate was 97 and max pressure was 144/69 mmHg. Clinically, the patient did not have any symptoms and the EKG did not show any significant ST or T-wave abnormalities consistent with ischemia. CONCLUSION: 1. Nondiagnostic electrocardiogram stress testing in response to Lexiscan. 2. Please follow up on the Cardiolite portion on separate report from the Radiology Department. MMODL / IJN: [id number] /
[2017-06-13 12:13] LABS: Glucose,Whole Blood 184 mg/dL (75-99)
[2017-06-13] MEDS ORDERED: RX INFO: IV CONTRAST WAS GIVEN 1 EACH MISC MISCELLANE PRN (13:17)
--- NOTE | 2017-06-13 14:51 | CT ---
EXAMINATION TYPE: CT angio chest DATE OF EXAM: 06/13/2017 COMPARISON: NONE HISTORY: Cough, chest pain, and shortness of breath CT DLP: 312.2 mGycm. Automated Exposure Control for Dose Reduction was Utilized. CONTRAST: CTA scan of the thorax is performed with IV Contrast, patient injected with 80 mL of Isovue 370, pulm onary embolism protocol. MIP Images are created on CT scanner and reviewed. FINDINGS: LUNGS: Respiratory motion artifact is seen making evaluation suboptimal particularly for subcentimete r nodularity. There is some linear scarring and/or atelectasis in the left lung base near diaphragm. No suspicious consolidation or focal groundglass opacity is seen. No suspicious parenchymal mass is n oted. No pleural effusion or pneumothorax is seen bilaterally. Tracheobronchial tree is patent. MEDIASTINUM: There is satisfactory enhancement of the pulmonary artery and its branches, there is no CT evidence for pulmonary embolism. There are no greater than 1 cm hilar or mediastinal lymph nodes . No cardiomegaly or pericardial effusion is seen . Coronary artery calcification is seen which is noted marker for coronary artery disease. OTHER: There are surgical changes at level of diaphragmatic hiatus likely from the stent fundoplicati on surgery. There is mild to moderate calcified plaque throughout visualized aorta extending into abd ominal branch vessels. Osseous structures are demineralized. There is moderate multilevel lateral spu rring in the lower thoracic spine. IMPRESSION: 1. No CT evidence for acute pulmonary embolism. 2. No suspicious acute pulmonary process.
--- NOTE | 2017-06-13 15:03 | P.DS ---
Providers Date of admission: 06/12/17 15:21 Expected date of discharge: 06/13/17 Attending physician: Chely Ziegler Consults: 06/12/17 15:21 Consult Physician Urgent Consulting Provider: [facility] Consult Reason/Comments: Chest pain with exertion, dyspnea Do you want consulting provider notified?: Yes Primary care physician: Val Walsh [facility] Course: Discharge diagnosis #1 chest pressure and discomfort for the last 2 weeks, patient was evaluated in the emergency room EKG was negative troponin was within normal limits and d- dimer within normal limits she was admitted to 24-hour observation cardiology consult was initiated. Echo shows a preserved EF with no significant valvular abnormality. CTA of the chest was negative for PE #2 shortness of breath, chest x-ray is within normal limits, unable to complete pulmonary function test inpatient due to patient recently being on prednisone #3 underlying history of hypertension maintained on Zestril will resume #4 underlying history of hyperlipidemia maintained on Lipitor continue #5 underlying history of vuu-cqhyvty-ayzlhyrre diabetes mellitus maintained on Januvia 100 mg daily Will continue, #6 Acute tracheobronchitis: No evidence of pneumonia on chest x-ray. Will give patient a course of Ceftin as well as an albuterol inhaler Hospital course Cindy Huerta is a 72-year-old female patient of Dr. walsh who presented to [facility] emergency room with a chief complaint of chest pressure and shortness of breath and cough, patient states that her symptoms started 2 weeks ago when she returned from a trip in [place], she was seen by her primary care physician and was prescribed 2 courses of antibiotic for sinusitis and bronchitis, however she continued to have worsening shortness of breath and chest discomfort, she decided to come to emergency room for further evaluation. Patient stated that she smoked for a short while in her early adulthood she quit 53 years ago she was never diagnosed with asthma or emphysema. She was exposed to smoke in the casino in [place]. Patient denies ever having any heart problems she denies any history of coronary artery disease no history of congestive heart failure or valvular heart disease. Possibility of pulmonary embolism was entertained in the emergency room patient had a d-dimer that was normal at 0.38. Patient was admitted to medical floor for further evaluation and treatment cardiology consultation was requested. Patient was seen evaluated by cardiology in regards to her chest pain and shortness of breath. Troponins were negative 3 sets. EKG normal sinus rhythm. Chest x-ray was negative. Patient also underwent a stress test which was negative. Patient was cleared by cardiology for discharge. No significant abnormality noted on echo. CTA of the chest was also completed because of patient's history of sitting for prolonged period of time with traveling to [place] via plane as well as traveling for long distances in a car. PE was ruled out. D-dimer was negative. Patient has been treated for a bronchitis. We'll switch antibiotics from Bactrim which she was on at home to Ceftin 500 mg twice a day twice a day for 10 days. Also will give patient a prescription for albuterol inhaler. We will have her follow-up with her PCP within the next 3 days. Recommend having a pulmonary function tests completed within the next 2 weeks. The renal dialysis technician for the pulmonary function test recommended patient being off of prednisone for 2 weeks before proceeding with this test. Patient is stable for discharge. I performed an examination of the patient and discussed their management with the physician Put In Beat Adjuster. I have reviewed the Physician Put In Beat Adjuster's notes and agree with the documented findings and plan of care Patient Condition at Discharge: Stable Plan - Discharge Summary New Discharge Prescriptions: New Cefuroxime Axetil [Ceftin] 500 mg PO BID #20 tab Albuterol Inhaler [Ventolin Hfa Inhaler] 1 - 2 puff INHALATION Q6H PRN #1 inhaler PRN Reason: Shortness Of Breath Continue Lisinopril [Zestril] 5 mg PO DAILY Aspirin 81 mg PO DAILY sitaGLIPtin [Januvia] 100 mg PO DAILY Atorvastatin [Lipitor] 10 mg PO HS [place]-3 Fatty Acids/Fish Oil [Fish Oil 1,000 mg Softgel] 1 cap PO DAILY Multivit with Calcium,Iron,Min [Women's Multivitamin] 1 tab PO DAILY Discontinued predniSONE 20 mg PO BID Sulfamethox-Tmp 800-160Mg [Bactrim DS 800-160 mg] 1 tab PO BID Discharge Medication List Aspirin 81 mg PO DAILY 11/17/16 [History] Atorvastatin [Lipitor] 10 mg PO HS 11/17/16 [History] Lisinopril [Zestril] 5 mg PO DAILY 11/17/16 [History] Multivit with Calcium,Iron,Min [Women's Multivitamin] 1 tab PO DAILY 10/05/17 [ History] [place]-3 Fatty Acids/Fish Oil [Fish Oil 1,000 mg Softgel] 1 cap PO DAILY [History] sitaGLIPtin [Januvia] 100 mg PO DAILY 11/17/16 [History] Albuterol Inhaler [Ventolin Hfa Inhaler] 1 - 2 puff INHALATION Q6H PRN #1 inhaler 06/13/17 [Rx] Cefuroxime Axetil [Ceftin] 500 mg PO BID #20 tab 06/13/17 [Rx] Follow up Appointment(s)/Referral(s): Wander Galvan MD [STAFF PHYSICIAN] - 06/30/17 3:15 pm Val Walsh MD [Primary Care Provider] - 3 Days Activity/Diet/Wound Care/Special Instructions: Diet: cardiac Activity: as tolerated Patient needs PFT to be completed outpatient in 2 weeks Discharge Disposition: HOME SELF-CARE
[2017-06-13 15:35] LABS: Hemoglobin A1C 7.4 % (4.0-6.0)
[2017-06-14] MEDS ORDERED: FAMOTIDINE 20 MG TAB PO SCH (09:00)
== END 2017-06-13 15:38 | disposition home or self-care (01) ==
LOC: EC 13:29 → 3OBS 15:21
PROVIDERS: ADMIT Internal Medicine; ATTEND Internal Medicine
DX: R07.89 Other chest pain (principal); R07.2 Precordial pain; R06.02 Shortness of breath; R00.2 Palpitations; I10 Essential (primary) hypertension; E11.9 Type 2 diabetes mellitus without complications; J20.9 Acute bronchitis, unspecified; Z87.891 Personal history of nicotine dependence; M19.90 Unspecified osteoarthritis, unspecified site; G43.909 Migraine, unspecified, not intractable, without status migrainosus; R11.0 Nausea; R10.9 Unspecified abdominal pain; R63.4 Abnormal weight loss; Z68.30 Body mass index [BMI] 30.0-30.9, adult; E78.5 Hyperlipidemia, unspecified; K58.9 Irritable bowel syndrome, unspecified; Z87.440 Personal history of urinary (tract) infections; Z80.9 Family history of malignant neoplasm, unspecified; Z88.8 Allergy status to other drugs, medicaments and biological substances; Z91.02 Food additives allergy status; Z79.899 Other long term (current) drug therapy; Z79.84 Long term (current) use of oral hypoglycemic drugs; Z79.82 Long term (current) use of aspirin
CPT/HCPCS: 99285; 96372 ×2; 96374; 96376; 36415; 94760; 93005; 93017; 93306; 85379; 83880; 80061; 80053 ×2; 82550 ×2; 82553 ×2; 83735; 84484 ×2; 85025 ×2; 85610; 85730; 83036; 71046; 71275; 78452; G0378 ×2; A9500; J1650 ×2; J0696 ×2; J2785; Q9967

== ENCOUNTER → 2017-10-04 | Outpatient (CLI) | payer MEDICARE, BC ==
--- NOTE | 2017-10-06 09:26 | MM ---
Reason for exam: screening (asymptomatic). Last mammogram was performed 5 years and 9 months ago. History: Patient is postmenopausal. Physical Findings: A clinical breast exam by your physician is recommended on an annual basis and results should be correlated with mammographic findings. MG 3D Screening Mammo W/Cad Bilateral CC and MLO view(s) were taken. Prior study comparison: December 29, 2011, bilateral digital screening mammo w/CAD. January 17, 2011, mammogram, performed at [facility]. The breast tissue is heterogeneously dense. This may lower the sensitivity of mammography. No significant changes when compared with prior studies. ASSESSMENT: Benign, BI-RAD 2 RECOMMENDATION: Routine screening mammogram of both breasts in 1 year.
== END | disposition home or self-care (01) ==
LOC: RADMAMWWP 14:49
PROVIDERS: ATTEND Family Medicine
DX: Z12.31 Encounter for screening mammogram for malignant neoplasm of breast (principal)
CPT/HCPCS: 77063; 77067

== ENCOUNTER → 2018-06-19 | Outpatient (CLI) | payer MEDICARE, BC ==
--- NOTE | 2018-06-19 15:16 | US ---
EXAMINATION TYPE: US venous doppler duplex LE RT DATE OF EXAM: 06/19/2018 3:07 PM COMPARISON: NONE CLINICAL HISTORY: M54.5 LOW BACK PAIN,R60.0 LOCALIZED EDEMA. Right calf cramping and mild swelling, n o h.o dvt SIDE PERFORMED: right TECHNIQUE: The lower extremity deep venous system is examined utilizing real time linear array sonog alexandru with graded compression, doppler sonography and color-flow sonography. VESSELS IMAGED: External Iliac Vein (EIV) Common Femoral Vein Deep Femoral Vein Greater Saphenous Vein * Femoral Vein Popliteal Vein Small Saphenous Vein * Proximal Calf Veins (* superficial vessels) Right Leg: Appears negative for DVT IMPRESSION: 1. Right lower extremity ultrasound negative for deep venous thrombosis
== END | disposition home or self-care (01) ==
LOC: RADUSWWP 14:46
PROVIDERS: ATTEND Orthopaedic Surgery Orthopaedic Surgery of the Spine
DX: M79.661 Pain in right lower leg (principal); R22.41 Localized swelling, mass and lump, right lower limb

== ENCOUNTER → 2018-07-20 | Outpatient (CLI) | payer MEDICARE, BC ==
--- NOTE | 2018-07-20 10:12 | XR ---
EXAMINATION TYPE: XR chest 2V DATE OF EXAM: 07/20/2018 COMPARISON: 06/12/2017 HISTORY: Presurgical examination. TECHNIQUE: Frontal and lateral views of the chest are obtained. FINDINGS: There is no focal air space opacity, pleural effusion, or pneumothorax seen. The cardiac silhouette size is within normal limits. Surgical clips are seen on the lateral view posterior to th e lower mediastinum and diaphragm near the gastroesophageal junction. The osseous structures are inta ct. Multilevel mild degenerative changes of the spine and mild acromioclavicular arthropathy. IMPRESSION: No acute cardiopulmonary process.
[2018-07-20 10:34] LABS: Basophils % (A) 0 %; Eosinophils # (A) 0.1 k/uL (0-0.7); Eosinophils % (A) 2 %; HCT 39.8 % (34.0-46.0); HGB 13.1 gm/dL (11.4-16.0); Lymphocytes # (A) 1.4 k/uL (1.0-4.8); Lymphocytes % (A) 19 %; MCH 32.1 pg (25.0-35.0); MCHC 32.8 g/dL (31.0-37.0); MCV 97.9 fL (80.0-100.0); Mean Platelet Volume 7.2; Monocytes # (A) 0.5 k/uL (0-1.0); Monocytes % (A) 6 %; Neutrophils # (A) 5.4 k/uL (1.3-7.7); Neutrophils % (A) 71 %; Platelet Count 213 k/uL (150-450); RBC 4.07 m/uL (3.80-5.40); RDW 13.6 % (11.5-15.5); WBC 7.6 k/uL (3.8-10.6)
[2018-07-20 10:48] LABS: Albumin 4.3 g/dL (3.5-5.0); Calcium 9.4 mg/dL (8.4-10.2); Potassium 4.8 mmol/L (3.5-5.1); Total Bilirubin 0.7 mg/dL (0.2-1.3); Total Protein 7.1 g/dL (6.3-8.2)
[2018-07-20 10:49] LABS: Partial Thromboplastin Time 22.6 sec (22.0-30.0); Prothrombin Time 10.5 sec (9.0-12.0)
[2018-07-20 10:55] LABS: Appearance,Urine Turbid (Clear); Bacteria,Urine Moderate /hpf; Bilirubin,Urine Negative (Negative); Blood,Urine Negative (Negative); Color,Urine Yellow; Glucose,Urine (UA) Negative (Negative); Ketones,Urine Negative (Negative); Leukocyte Esterase,Urine Large (Negative); Mucus,Urine Rare /hpf; Nitrite,Urine Negative (Negative); Protein,Urine 1+ (Negative); Specific Gravity,Urine 1.024 (1.001-1.035); Squamous Epithelial Cell,Urine 81 /hpf (0-4); Urobilinogen,Urine <2.0 mg/dL (<2.0); WBC,Urine >182 /hpf (0-5)
== END | disposition home or self-care (01) ==
LOC: LABPAT 09:14
PROVIDERS: ATTEND Orthopaedic Surgery Orthopaedic Surgery of the Spine
DX: Z01.818 Encounter for other preprocedural examination (principal); Z01.812 Encounter for preprocedural laboratory examination; M48.061 Spinal stenosis, lumbar region without neurogenic claudication
CPT/HCPCS: 71046; 80053; 81001; 85025; 85610; 85730; 86850; 86900; 86901; 93005

== ENCOUNTER 2018-08-01 11:18 | Day surgery (SDC) | payer MEDICARE, BC ==
[~2018-08-01 11:18] MED LIST changes: +BACITRACIN 50,000 UNIT, POLYMYXIN B 500,000 UNIT in SODIUM CHLORIDE 0.9% IRRIGATIO 1,00... IRRIGATION ONE; -LACTATED RINGERS 1,000 ML IV SCH; +LIDOCAINE 1% 20 ML VIAL (10MG/ML) FOR IV START INTRADERMA PRN; +ONDANSETRON 4 MG/2 ML VIAL IVP ONE; +ceFAZolin IN SWFI 2 GM/20 ML SYRINGE IVP ONE
[2018-08-01] MEDS: LACTATED RINGERS 1,000 ML IV SCH (12:06)
[2018-08-01 12:14] LABS: Glucose,Whole Blood 133 mg/dL (75-99)
[2018-08-01] MEDS ORDERED: PROPOFOL 10 MG/ML 20 ML VIAL IV ONE (14:06)
[2018-08-01] MEDS ORDERED: MIDAZOLAM 2 MG/2 ML VIAL ONE (14:06)
[2018-08-01] MEDS ORDERED: SUCCINYLCHOLINE CHLORIDE 100 MG/5 ML SYR IV ONE (14:06)
[2018-08-01] MEDS ORDERED: LIDOCAINE 1% INJ 10MG/ML (20 ML MDV) ONE (14:06)
[2018-08-01] MEDS ORDERED: fentaNYL (PF) 50 MCG/ML 2 ML AMP ONE (14:06)
[2018-08-01] MEDS ORDERED: GELATIN SPONGE,ABSORB (LARGE) 1 EACH SPONGE TOPICAL ONE (14:54)
[2018-08-01] MEDS ORDERED: BUPIVACAIN-EPI 0.5%-1:200,000 30 ML VIAL SQ ONE (14:54)
[2018-08-01] MEDS ORDERED: THROMBIN (BOVINE) 5,000 UNIT VIAL TOPICAL ONE (14:54)
[2018-08-01] MEDS ORDERED: methylPREDNISolone ACETATE 40 MG/ML 1 ML VIAL MISCELLANE ONE (15:31)
[2018-08-01] MEDS ORDERED: HYDROmorphone 0.5 MG/0.5 ML SYRINGE IVP PRN (15:41)
[2018-08-01] MEDS ORDERED: IBUPROFEN 600 MG TAB PO PRN (15:41)
[2018-08-01] MEDS ORDERED: KETOROLAC 30 MG/ML 1 ML VIAL IVP PRN (15:41)
[2018-08-01] MEDS ORDERED: ONDANSETRON 4 MG/2 ML VIAL IVP ONE (15:41)
[2018-08-01] MEDS ORDERED: HYDROcodone/APAP 5-325MG 1 EACH TAB PO PRN (15:41)
[2018-08-01] MEDS ORDERED: MAGNESIUM HYDROXIDE 2,400 MG/10 ML CUP PO PRN (15:41)
[2018-08-01] MEDS ORDERED: BENZOCAINE/MENTHOL LOZENG 1 EACH LOZENGE MUCOUS MEM PRN (15:41)
--- NOTE | 2018-08-01 15:48 | P.OP ---
Date of Procedure: 08/01/18 Preoperative Diagnosis: Degenerative scoliosis, spinal stenosis L3 4 L4 5, lower extremity radiculopathy, neurogenic claudication, degenerative disc disease, facet arthrosis Postoperative Diagnosis: Same Anesthesia: GETA Pathology: none sent Condition: stable Disposition: PACU Description of Procedure: DESCRIPTION OF PROCEDURE(S): BRIEF OPERATIVE NOTE Preoperative Diagnosis: Degenerative scoliosis, Spinal stenosis L3 4 L4 5, neurogenic claudication, lower extremity radiculopathy, degenerative disc disease, facet arthrosis Postoperative Diagnosis: Same Procedure: Laminectomy and decompression bilaterally with bilateral foraminotomy L3 4 L4 5 Placement of interlaminar stabilizing Coflex device L3 4 L4 5 Use of fluoroscopic guidance Surgeon: Dr. Rowell [employer] Inspector: Nawaf WILLIAM who is present throughout the entire the case persistence during positioning, dissection, exposure, visualization, and all crucial elements of the case as well as closure. Anesthesia: General anesthesia Estimated blood loss: Approximately 75 mL Complications: None apparent Components implanted: Paradigm Coflex interlaminar stabilization device Disposition: To recovery room in good stable condition. OPERATIVE INDICATIONS The patient has been having issues in their lower back and lower extremities. The patient has history of degenerative changes at her lumbar spine along with degenerative scoliosis. The patient was having evidence of neurogenic claudication and spinal stenosis along with issues with lower extremity radiculopathy. She is found have significant spinal stenosis at L3 4 L4 5 correlated well with her low back and lower extremity symptoms especially her neurogenic claudication. The patient was found to have significant spinal stenosis which correlated well with their low back and lower extremity symptoms. The patient has been through conservative treatment. She is not having any lasting effects despite aggressive conservative care. With their imaging, and the level of their stenosis and their propensity for the possibility of recurrent stenosis I felt that decompression with intralaminar stabilization wou ld be a good benefit for the patient. We discussed various treatment options including surgery, and the patient wishes to proceed with surgery We discussed the risk, patient's alternatives and benefits of surgery including but not limited to, risk of bleeding risk of infection, risk of need for further surgery, risk of decreased, loss of motion, loss of function, nerve damage, paralysis, heart attack, blindness and . OPERATIVE SUMMARY After discussing all the risks, patient alternatives and benefits at length, the patient elected to proceed with surgical intervention, signed informed consent, and presented for their procedure. The patient was seen and examined in the preoperative holding area and the surgical site was marked. The patient was given antibiotics and brought to the operating room. The patient was sedated and intubated by anesthesia in standard fashion. The patient was positioned on to the operating room table in a prone position on the appropriate frame which was well-padded and well molded. We were careful to pad any bony prominences and pressure points. We were careful to maintain the patient's cervical spine and good neutral alignment and position throughout. The patient was prepped and draped in a normal standard fashion. An appropriate timeout and keystone protocol performed. We were able to proceed with the surgery. Fluoroscopy was utilized to establish the appropriate level. The local wound area was infiltrated with local anesthetic. An incision was made at the midline longitudinally over the appropriate levels at L3 4 and 5. Dissection was taken down subcutaneously to the level of the fascia which was split midline. Dissection was taken over the lamina. Intraoperative fluoroscopy was taken which showed a marker at the appropriate level at L3 4. With the appropriate level positively confirmed, we were able to proceed with laminectomy. In similar fashion and performed a laminectomy at L4 5 and L3 4. The wound was copiously irrigated and suctioned dry as had been done periodically throughout the case. I performed a laminectomy with a combination of curettes and a high-speed bur and Kerrison rongeurs. A small medial facetectomy was performed again further access. This was done bilaterally at that level, first L4 5 and L3 4 A partial foraminotomy was also performed. Portions of the ligamentum flavum were taken down to expose the dura and traversing nerve root. I was able to mobilize the traversing nerve root and gain access to the disc space. There is no evidence of dural tear or leak. Good hemostasis maintained. The wound was copiously irrigated and suctioned dry. I performed a good decompression at L45 and at L3 4 with wide bilateral foraminotomy and partial medial facetectomy. I was careful to preserve stability at each level. Good decompression was noted. At this point further prepared the interspinous process and interlaminar space with a combination of curettes and a high-speed bur and Kerrison rongeurs. As able get good parallel alignment at the interspinous process space and interlaminar space. I used a trial spacer for the Coflex device and have good fit and fill with the appropriate size device. I had to shave down the spinous process at to allow for appropriate positioning of the Coflex device. The device was prepared and then positioned and malleted in position with good alignment and good position and good bony purchase at the interlaminar space. This was done first at L4 5 and L3 4 The position was checked and found to be approximately 3 mm away from the dura without impingement on the dura itself. It was checked and found to be stable. Intraoperative C-arm was utilized to confirm the alignment and position at the appropriate levels. We were able to proceed with closure. The fascia was closed for a watertight closure. The subcuticular tissue was closed with absorbable suture. The wound was cleaned and dried and dressed with the appropriate dressing. The drapes were broken down. The patient was gently rolled back onto their hospital bed being careful to maintain their cervical spine and good neutral alignment and position. They were woken up by anesthesia, extubated, and brought to the recovery room in good stable condition. The patient will be admitted to the hospital for observation and for appropriate postoperative care, medical management and monitoring. We will continue to follow them closely about the postoperative course.
[2018-08-01] MEDS: HYDROmorphone 0.5 MG/0.5 ML SYRINGE IVP PRN ×2 (16:17→16:24)
[2018-08-01 18:21] VITALS: BMI 29.2
[2018-08-01] MEDS: SODIUM CHLORIDE 0.9% 1,000 ML IV SCH (18:25)
[2018-08-01] MEDS ORDERED: ATORVASTATIN 10 MG TAB PO SCH (21:00)
[2018-08-01] MEDS: ceFAZolin IN SWFI 2 GM/20 ML SYRINGE IVP SCH (21:46)
[2018-08-02] MEDS: SODIUM CHLORIDE 0.9% 1,000 ML IV SCH (04:30)
[2018-08-02] MEDS: LACTATED RINGERS 1,000 ML IV SCH (05:30)
[2018-08-02] MEDS: ceFAZolin IN SWFI 2 GM/20 ML SYRINGE IVP SCH (05:45)
--- NOTE | 2018-08-02 06:13 | FL ---
EXAMINATION TYPE: FL guidance operating room DATE OF EXAM: 08/01/2018 FLUOROSCOPY Fluoroscopy time of 3 seconds was used during needle placement for lumbar laminectomy. 1 image/s doc ument/s the procedure.
[2018-08-02 07:33] VITALS: BP 94/50; RESP 16; TEMP 98.9
[2018-08-02 07:53] VITALS: PULSE 55
--- NOTE | 2018-08-02 08:54 | P.DS ---
Providers Date of admission: 07/31/18 Attending physician: Shyla Rowell Primary care physician: Val [facility] Course: The patient presented on the day of admission as per their operative note. She underwent decompression L3 4 L4 5 for her severe spinal stenosis with lower extremity neurogenic claudication and radiculopathy. Should placement of intralaminar stabilizers well. Today she feels very good. She is very happy with her right leg she is very thankful that she was able to get up and her right leg did not give her significant symptoms and does not spasm. She is quite relieved from this. She is having some back soreness as expected. Physical Exam The incision site is clean dry and intact. There was some bleeding overnight but this seems to have resolved. There is very scant bleeding at this point and the wound appears to be healing appropriately There is no purulence no evidence of infection. Abdomen soft and nontender. Chest has good excursion with deep inspiration and expiration. The patient has active and passive range of motion intact at the upper and lower extremities. There is no acute change in neurologic status. She has sustained dorsiflexion plantarflexion and EHL intact. Hospital Course Postoperative day #1 status post laminectomy decompression L3 4 L4 5 with placement of intralaminar stabilizers for her severe spinal stenosis lower extremity extremity radiculopathy and neurogenic claudication The patient has been making good progress postoperatively. They have completed the prophylactic antibiotics without any signs or symptoms of infection. The patient has been able to advance their diet, and is tolerating diet adequately. The pain was initially controlled with IV medications and is now controlled appropriately with oral medications. The patient has been able to increase their mobilization. The patient has progressed appropriately. I think they are in good stable condition for discharge today. They will be sent home with appropriate prescriptions. I answered their questions to the best of my ability in a language that they can understand and they are agreeable with the plan. They will follow up as directed in approximately 2 weeks or sooner if she is having problems. Patient Condition at Discharge: Good Plan - Discharge Summary Discharge Rx Participant: No New Discharge Prescriptions: New HYDROcodone/APAP 5-325MG [[place] 5] 1 each PO Q6HR PRN #12 tab PRN Reason: Severe Pain No Action Aspirin 81 mg PO DAILY sitaGLIPtin [Januvia] 100 mg PO DAILY Atorvastatin [Lipitor] 10 mg PO HS [place]-3 Fatty Acids/Fish Oil [Fish Oil 1,000 mg Softgel] 1 cap PO DAILY Multivit with Calcium,Iron,Min [Women's Multivitamin] 1 tab PO DAILY Discharge Medication List Aspirin 81 mg PO DAILY 11/17/16 [History] Atorvastatin [Lipitor] 10 mg PO HS 11/17/16 [History] Multivit with Calcium,Iron,Min [Women's Multivitamin] 1 tab PO DAILY 11/17/16 [History] [place]-3 Fatty Acids/Fish Oil [Fish Oil 1,000 mg Softgel] 1 cap PO DAILY 11/17/16 [History] sitaGLIPtin [Januvia] 100 mg PO DAILY 11/17/16 [History] HYDROcodone/APAP 5-325MG [[place] 5] 1 each PO Q6HR PRN #12 tab 08/01/18 [Rx] Follow up Appointment(s)/Referral(s): Shyla Rowell DO [Doctor of Osteopathic Medicine] - 2 Weeks Activity/Diet/Wound Care/Special Instructions: Keep site clean. May shower with waterproof Tegaderm intact. Do not soak in a tub. After 72 hours postoperatively, patient May remove dressing and then may shower with area uncovered. Leave Steri-Strips intact and allow them to fray off on their own. May ambulate as tolerated. Avoid heavy or rigorous activity. No repetitive bending twisting or lifting. No overhead work. May apply ice to the area up to 20 minutes at a time 3 times a day for comfort Discharge Disposition: HOME SELF-CARE
[2018-08-02] MEDS ORDERED: MULTIVITAMINS, THERA 1 EACH TAB PO SCH (09:00)
[2018-08-02] MEDS ORDERED: LINAGLIPTIN 5 MG TABLET PO SCH (09:00)
[2018-08-02] MEDS ORDERED: ASPIRIN 81 MG PO SCH (09:00)
[2018-08-02] MEDS ORDERED: NON-FORMULARY DRUG (Omega-3 Fatty Acids/Fish Oil [Fish Oil 1,000 Mg Softgel] 1 CAP) PO SCH (09:00)
== END 2018-08-02 10:50 | disposition home or self-care (01) ==
LOC: OR 11:18 → 4SSUR 17:40 → OR 08-02 10:50
PROVIDERS: ATTEND Orthopaedic Surgery Orthopaedic Surgery of the Spine
DX: M41.9 Scoliosis, unspecified (principal); M48.062 Spinal stenosis, lumbar region with neurogenic claudication; M51.06 Intervertebral disc disorders with myelopathy, lumbar region; M51.16 Intervertebral disc disorders with radiculopathy, lumbar region; M47.26 Other spondylosis with radiculopathy, lumbar region; I10 Essential (primary) hypertension; Z82.49 Family history of ischemic heart disease and other diseases of the circulatory system; E11.9 Type 2 diabetes mellitus without complications; E78.5 Hyperlipidemia, unspecified; K21.9 Gastro-esophageal reflux disease without esophagitis; G43.909 Migraine, unspecified, not intractable, without status migrainosus; H40.9 Unspecified glaucoma; Z90.710 Acquired absence of both cervix and uterus; Z83.3 Family history of diabetes mellitus; Z72.0 Tobacco use; Z79.899 Other long term (current) drug therapy; Z79.891 Long term (current) use of opiate analgesic; Z79.82 Long term (current) use of aspirin; Z88.6 Allergy status to analgesic agent; Z88.8 Allergy status to other drugs, medicaments and biological substances
CPT/HCPCS: 97161; 22867; 22868; C1713; J2250; J1030; J2405; J2001; J3010; J0330; J2704; J1170; J0690 ×2; 86850; 86900; 86901

== ENCOUNTER → 2018-10-17 | Outpatient (CLI) | payer MEDICARE, BC ==
--- NOTE | 2018-10-18 10:13 | BD ---
EXAMINATION TYPE: Axial Bone Density DATE OF EXAM: 10/17/2018 COMPARISON: NONE CLINICAL HISTORY: M [age] Height: 5 FT 2 IN Weight: 154 FRAX RISK QUESTIONS: History of Fracture in Adulthood: YES Secondary Osteoporosis: 3. Menopause before 45: YES RISK FACTORS HISTORY OF: Surgery to Spine/Hip(right/left)/Wrist (right/left): LUMBAR When: JULY 2018 Postmenopausal woman: TOTAL HYST AGE 39 MEDICATIONS: Additional Medications: JANUVIA, LIPITOR, FISH OIL Additional History: EXAM MEASUREMENTS: Bone mineral density about the R hip (g/cm2): 0.897 Bone mineral density about the L hip (g/cm2): 0.844 T Score values are as follows: -----R Neck: -1.4 -----L Neck: -1.0 -----R Total: -0.8 -----L Total: -0.9 BASELINE Bone mineral density about the L Wrist (g/cm2): 0.565 T Score values are as follows: -----Dist. R+U: -1.8 -----Prox. R+U: -0.9 -----Radius total: -1.8 BASELINE IMPRESSION: Osteopenia (T Score between -2.5 and -1). There is slightly increased risk of fracture and the patient may be considered for treatment. Re-Screen 2-5 years. NOTE: T-SCORE=SD OF THE YOUNG ADULT MEAN.
--- NOTE | 2018-10-18 13:14 | MM ---
Reason for exam: screening (asymptomatic). Last mammogram was performed 1 year ago. History: Patient is postmenopausal. Physical Findings: A clinical breast exam by your physician is recommended on an annual basis and results should be correlated with mammographic findings. MG 3D Screening Mammo W/Cad Bilateral CC and MLO view(s) were taken. Prior study comparison: October 04, 2017, bilateral MG 3d screening mammo w/cad. December 29, 2011, bilateral digital screening mammo w/CAD. The breast tissue is heterogeneously dense. This may lower the sensitivity of mammography. Stable benign calcifications. There is no discrete abnormality. No significant changes when compared with prior studies. ASSESSMENT: Benign, BI-RAD 2 RECOMMENDATION: Routine screening mammogram of both breasts in 1 year.
== END | disposition home or self-care (01) ==
LOC: RADMAMWWP 14:48
PROVIDERS: ATTEND Family Medicine
DX: Z12.31 Encounter for screening mammogram for malignant neoplasm of breast (principal); M85.80 Other specified disorders of bone density and structure, unspecified site
CPT/HCPCS: 77063; 77067; 77080

== ENCOUNTER → 2019-02-21 | Outpatient (CLI) | payer MEDICARE, BC ==
--- NOTE | 2019-02-21 09:53 | FL ---
EXAMINATION TYPE: FL barium swallow DATE OF EXAM: 02/21/2019 CLINICAL HISTORY: Gastroesophageal reflux. Cough. History of Deepika fundoplication 10 years ago TECHNIQUE: A double contrast esophagram is performed utilizing air and barium. A total of 1.1 minut e of fluoroscopic time was utilized during procedure. 50 fluoroscopic images were saved. COMPARISON: None FINDINGS: The esophagus shows normal motility and emptying into the stomach. Small recurrent hiatal h ernia seen on the supine images only. No stricture noted. No significant gastroesophageal reflux was seen during real time performance of this study. IMPRESSION: Small recurrent hiatal hernia on the supine images only. No significant gastroesophageal reflux on real-time exam.
== END | disposition home or self-care (01) ==
LOC: RADUSWWP 08:46
PROVIDERS: ATTEND Otolaryngology
DX: K44.9 Diaphragmatic hernia without obstruction or gangrene (principal)
CPT/HCPCS: 74220

== ENCOUNTER → 2019-08-06 | Day surgery (SDC) | payer BC, MEDICARE ==
[2019-08-02 14:01] VITALS: BMI 28.3
[~2019-08-06] MED LIST changes: -BACITRACIN 50,000 UNIT, POLYMYXIN B 500,000 UNIT in SODIUM CHLORIDE 0.9% IRRIGATIO 1,00... IRRIGATION ONE; +LACTATED RINGERS 1,000 ML IV SCH; +LIDOCAINE 1% (10MG/ML) FOR IV START INTRADERMA ONE; -LIDOCAINE 1% 20 ML VIAL (10MG/ML) FOR IV START INTRADERMA PRN; +LIDOCAINE 1% INJ 10MG/ML (20 ML MDV) ONE; -ONDANSETRON 4 MG/2 ML VIAL IVP ONE; +PROPOFOL 10 MG/ML 20 ML VIAL IV ONE; -ceFAZolin IN SWFI 2 GM/20 ML SYRINGE IVP ONE
[2019-08-06 07:16] VITALS: TEMP 97.4
[2019-08-06 07:26] LABS: Glucose,Whole Blood 143 mg/dL (75-99)
--- NOTE | 2019-08-06 08:20 | P.PCN ---
Date of Procedure: 08/06/19 Description of Procedure: BRIEF HISTORY: Patient is a 74-year-old presents for outpatient EGD and colonoscopy for evaluation of epigastric abdominal pain and change in bowel habits. Long- standing history of GERD status post Deepika fundoplication in 2002 and revised thousand 7 now having postprandial epigastric abdominal pain she also has a long-standing history of intermittent constipation. Last colonoscopy 2014. She has a history of colon polyps. Procedure performed: Esophagogastroduodenoscopy with biopsy Colonoscopy with polypectomy Estimated blood loss: Minimal. Preoperative diagnosis: Epigastric pain, change in bowel habits, last colonoscopy 2014 significant for polypectomy. Anesthesia: MAC Procedure: After informed consent was obtained from the patient was brought into the endoscopy unit and IV sedation was administered by anesthesia under continuous monitoring. Initially upper endoscopy was done. The Olympus GF 190 video endoscope was inserted into the mouth and esophagus intubated without any difficulty and was gradually advanced into the stomach and duodenum and carefully examined. The bulb and second part of the duodenum appeared normal, with biopsies taken. The scope was then withdrawn into the stomach adequately insufflated with air and upon careful examination the antrum and body, cardia and fundus appeared normal, except for some mild scattered punctate erythema consistent with mild gastritis with biopsies of the antrum and body taken. On retroflexion in the stomach patient's prior Deepika fundoplication was noted and appeared intact. There was also a small amount of food debris remaining in the stomach. The scope was then withdrawn into the esophagus. The GE junction was located at 35 cm to the incisors, with biopsies taken. It appeared regular with no erythema erosions or ulcerations, with mid esophageal biopsies taken. Rest of the esophagus appeared normal. Patient tolerated the procedure well. At this time the patient continued to remain sedation. Initial digital rectal examination was normal. Olympus CF 190 video colonoscope was then inserted into the rectum and gradually advanced to the cecum without any difficulty. Careful examination was performed as the scope was gradually being withdrawn. The prep was good however there was a small amount of stool in the right colon prohibiting complete visualization of the mucosa. The cecum, ascending colon, transverse colon, descending colon, sigmoid colon and rectum appeared normal. A few scattered diverticula noted in the sigmoid colon. Diminutive 2 mm polyps removed from the transverse colon and sigmoid colon. Retroflexion was performed in the rectum and no lesions were noted, low-grade internal hemorrhoids noted. Patient tolerated the procedure well. Impression: 1. Mild gastritis antrum and body, biopsied. Deepika fundoplication. Biopsies of the duodenum, GE junction and mid esophagus. Small amount of food debris remaining in the stomach. 2. Diminutive polyps removed from the transverse colon and sigmoid colon with cold forcep polypectomy. Mild sigmoid diverticulosis. Some stool noted in the right colon prohibiting complete visualization of mucosa. Recommendations: Findings of this examination were discussed with the patient. Okay to resume diet. Okay to resume medications. Await pathology from biopsies and polypectomies patient should follow-up in the GI clinic in 1-2 weeks for these results. Consider gastric emptying study to rule out gastroparesis given the food debris noted in the stomach. Would recommend repeat colonoscopy in 3 years.
[2019-08-06 08:26] VITALS: BP 126/79; PULSE 71; RESP 16
== END ==
LOC: ORWHC2ENDO 06:52
PROVIDERS: ATTEND Internal Medicine
DX: D12.5 Benign neoplasm of sigmoid colon (principal); D12.3 Benign neoplasm of transverse colon; K57.30 Diverticulosis of large intestine without perforation or abscess without bleeding; K64.8 Other hemorrhoids; K29.50 Unspecified chronic gastritis without bleeding; K21.0 Gastro-esophageal reflux disease with esophagitis; I10 Essential (primary) hypertension; E78.5 Hyperlipidemia, unspecified; E11.9 Type 2 diabetes mellitus without complications; M19.90 Unspecified osteoarthritis, unspecified site; Z87.891 Personal history of nicotine dependence; Z90.710 Acquired absence of both cervix and uterus; Z98.890 Other specified postprocedural states; Z79.82 Long term (current) use of aspirin; Z79.899 Other long term (current) drug therapy; Z79.84 Long term (current) use of oral hypoglycemic drugs; Z88.8 Allergy status to other drugs, medicaments and biological substances; Z91.048 Other nonmedicinal substance allergy status
CPT/HCPCS: 88305; 45380; 43239; J2001; J2704

== ENCOUNTER → 2019-08-21 | Outpatient (CLI) | payer MEDICARE ==
--- NOTE | 2019-08-21 10:27 | CT ---
EXAMINATION TYPE: CT brain w con DATE OF EXAM: 08/21/2019 COMPARISON: 11/20/2009 INDICATION: Dysphonia DLP: 981.70 mGycm, Automated exposure control for dose reduction was used. CONTRAST: [address] Isovue-[address] of the brain is performed utilizing 3 mm thick sections through the posterior fossa and 3 mm thick sections through the remaining calvarium. Study is performed within 24 hours of arrival to the hosp ital. No abnormal hyperdensity is present to suggest an acute intracranial hemorrhage. No mass lesion is evident. No acute infarcts are evident. Ventricles and sulci are appropriate for the patient age. No suspicious enhancement is evident. Paranasal sinuses and mastoid air cells within the [id number] are clear. Mastoid air cells may be slightly underpneumatized. Note is made a left septal deviation. IMPRESSIONS: 1. No acute intracranial process.
--- NOTE | 2019-08-21 12:34 | CT ---
EXAMINATION TYPE: CT soft tissue neck w con DATE OF EXAM: 08/21/2019 COMPARISON: None HISTORY: Dysphonia CT DLP: 358.70 mGycm CONTRAST: Patient injected with 100 mL of Isovue 300. TECHNIQUE: Axial images at 3 mm thick sections. Reconstructed images in the coronal plane and sagitt al plane are reviewed. FINDINGS: Limited CT sections are obtained the lung apices. The lung apices appear clear. No suspici ous aortopulmonic window masses or adenopathy are identified. CT neck: The torus tubarius and fossa of Rosenmuller are normal. Completion Supervisor spaces are normal. Para nasal sinuses and mastoid air cells are clear. Parotid glands appear normal and symmetrical. Submandibular glands, are normal. Parapharyngeal spac es are normal. No suspicious adenopathy is evident. Some shotty lymphadenopathy is in the submandibu lar regions The hypopharynx appears within normal limits. Vocal cord level appear symmetrical. Thyroid as visualized is normal. Osseous structures are normal. Mild degenerative disc changes are present within the cervical spine. IMPRESSIONS: 1. No suspicious changes CT neck.
== END | disposition home or self-care (01) ==
LOC: RADCTMAIN 07:46
PROVIDERS: ATTEND Family Medicine
DX: R49.0 Dysphonia (principal)
CPT/HCPCS: 82565; 84520; 70491; 70460; 36415; Q9967

== ENCOUNTER → 2020-03-11 | Outpatient (CLI) | payer MEDICARE | END | disposition home or self-care (01) | LOC: LABWHC1 12:14 | PROVIDERS: ATTEND Family Medicine | DX: Z01.818 Encounter for other preprocedural examination (principal) | CPT/HCPCS: 36415; 93005 ==

== ENCOUNTER 2021-06-16 07:23 | Day surgery (SDC) | payer MEDICARE ==
[2021-06-04 16:16] VITALS: BMI 28.3
[~2021-06-16 07:23] MED LIST changes: -LACTATED RINGERS 1,000 ML IV SCH; -LIDOCAINE 1% (10MG/ML) FOR IV START INTRADERMA ONE; -LIDOCAINE 1% INJ 10MG/ML (20 ML MDV) ONE; -PROPOFOL 10 MG/ML 20 ML VIAL IV ONE; +ceFAZolin 1 GM in SODIUM CHLORIDE 0.9% IRRIG BTL 250 ML IRRIGATION PRN
[2021-06-16] MEDS ORDERED: SODIUM CHLORIDE 0.9% 500 ML 500 ML IV ONE (07:44)
[2021-06-16 07:47] LABS: Glucose,Whole Blood 155 mg/dL (75-99)
[2021-06-16 08:06] LABS: Calcium 9.4 mg/dL (8.4-10.2); Potassium 4.1 mmol/L (3.5-5.1)
[2021-06-16 08:08] LABS: HCT 43.1 % (34.0-46.0); HGB 14.5 gm/dL (11.4-16.0); MCH 34.3 pg (25.0-35.0); MCHC 33.7 g/dL (31.0-37.0); MCV 101.7 fL (80.0-100.0); Macrocytosis Slight; Mean Platelet Volume 7.2; Platelet Count 244 k/uL (150-450); RBC 4.23 m/uL (3.80-5.40); RDW 12.9 % (11.5-15.5); WBC 8.2 k/uL (3.8-10.6)
[2021-06-16] MEDS ORDERED: IOPAMIDOL-370 50ML BTL INJ ONE (08:37)
[2021-06-16 08:38] LABS: Lymphocytes # (M) 2.46 k/uL (1.0-4.8); Monocytes # (M) 0.49 k/uL (0-1.0); Neutrophils # (M) 5.25 k/uL (1.3-7.7); Neutrophils % (M) 64 %; Nucleated Red Blood Cells 0 /100 WBC (0-0); Total Cells Counted 100
[2021-06-16] MEDS ORDERED: fentaNYL (PF) 50 MCG/ML 2 ML AMP ONE (08:51)
[2021-06-16] MEDS ORDERED: MIDAZOLAM 2 MG/2 ML VIAL IV ONE (09:04)
[2021-06-16] MEDS ORDERED: fentaNYL (PF) 50 MCG/ML 2 ML AMP IV ONE (09:04)
[2021-06-16] MEDS ORDERED: LIDOCAINE 1% INJ 10MG/ML (30 ML VIAL-PF) SQ ONE ×2 (09:09→09:20)
[2021-06-16] MEDS ORDERED: ACETAMINOPHEN TAB 325 MG TAB PO PRN (10:12)
--- NOTE | 2021-06-16 10:20 | P.PCN ---
Date of Procedure: 06/16/21 Preoperative Diagnosis: Sick sinus syndrome with paroxysmal atrial fibrillation and sinus pauses associated with dizziness Postoperative Diagnosis: The same Procedure(s) Performed: Axillary venography, dual-chamber permanent pacemaker implantation Description of Procedure: HISTORY: This is a 76-year-old female who was noted evidence of sick sinus syndrome with paroxysmal atrial fibrillation and long sinus pauses associated with dizziness. Patient was advised to have dual-chamber pacemaker. CONSENT:I have discussed the risks, benefits and alternative therapies for the above-mentioned procedure and for both sedation/analgesia as well as necessary blood product administration, if indicated, as they pertain to this patient. The patient has indicated understanding and acceptance of the risks and procedures discussed. . PROCEDURE: Patient was brought to the lab in a fasting state. Patient was prepped and draped in the usual fashion. Patient was given IV sedation with fentanyl and Versed. The skin below the left clavicle was infiltrated with lidocaine. An incision was made parallel to deltopectoral groove was deepened until the pectoral fascia was exposed. A pocket was created by blunt dissection and cautery. Axillary venography was performed to delineate the course of the axillary vein. 2 sticks were performed into extrathoracic portion of the axillary vein and 2 sheaths were advanced over the guidewires and left in subclavian vein. Conscious Sedation: Versed 1 mg Fentanyl 25 g Duration 58 minutes LEADS: ATRIAL: This is manufactured by [employer]. Model number is 5076-45 and the serial number is [id number] VENTRICULAR: . This is manufactured by [email or web address]. Model number is 5076-52. The serial number is [id number]. New THE DEVICE: This is manufactured by [email or web address]. Model number is [id number] and the serial number is [id number] The ventricular lead is maneuvered l with help of a straight and curved stylets into the left ventricle apical region. Satisfactory position was obtained and threshold measurements were made. The atrial lead was then maneuvered into the right atrial appendage. And thresholds were obtained. THRESHOLDS: ATRIUM: The minimum patient threshold is 1.2 V at a pulse width of 0.5 with impedance of 627 P-wave: 2.5 mV VENTRICLE: The minimum patient threshold is 0.5 at pulse width of 0.5. The impedance is 912 R-wave: 15 mV The leads and pulse generator remained in the pocket after it was washed with antibiotics. Pocket was closed in the usual fashion. The fascia was closed with 2-0 Prolene ,the subcutaneous tissue was closed with 3-0 Prolene and the skin was closed with 4-0 Prolene. PROGRAMMING: MODE: AAIR with mode switch to DDDR RATE: 60-130 OUTPUT: Atrium : 3.5 V Ventricle: 3.5 V FINAL IMPRESSION: #1. Successful implantation of dual-chamber pacemaker #2. Axillary venography COMPLICATIONS: None PLAN: Patient will be monitored on the telemetry unit. If stable patient will be discharged home tomorrow. Chest x-ray in the morning. Continue prophylactic antibiotics and analgesics
[2021-06-16] MEDS: SODIUM CHLORIDE 0.9% 1,000 ML IV SCH ×7 (13:27→23:14)
[2021-06-16 17:19] LABS: Glucose,Whole Blood 164 mg/dL (75-99)
[2021-06-16] MEDS ORDERED: ATORVASTATIN 10 MG TAB PO SCH (21:00)
[2021-06-16] MEDS ORDERED: FAMOTIDINE 20 MG TAB PO SCH (21:00)
[2021-06-16 21:13] LABS: Glucose,Whole Blood 184 mg/dL (75-99)
[2021-06-17] MEDS: SODIUM CHLORIDE 0.9% 1,000 ML IV SCH ×2 (04:56)
--- NOTE | 2021-06-17 06:47 | XR ---
EXAMINATION TYPE: XR chest 2V DATE OF EXAM: 06/17/2021 COMPARISON: Chest x-ray July 20, 2018 HISTORY: Pacemaker insertion. TECHNIQUE: Frontal and lateral views of the chest are obtained. FINDINGS: There is mild chronic parenchymal changes bilaterally without suspicious focal air space o pacity, pleural effusion, or pneumothorax seen. The cardiac silhouette size is stable and upper limi ts of normal. New dual-lead pacemaker with leads terminating in right atrium and right ventricle. S urgical clips near diaphragmatic hiatus retrocardiac region redemonstrated. The osseous structures re main demineralized. Stable slight underlying scoliotic curvature. IMPRESSION: As above.
[2021-06-17 07:49] LABS: Glucose,Whole Blood 166 mg/dL (75-99)
--- NOTE | 2021-06-17 08:51 | P.DS ---
Providers Date of admission: 06/16/2021 Expected date of discharge: 06/17/21 Attending physician: Ladan Cline Primary care physician: Val Walsh - Discharge Diagnosis(es) (1) Sick sinus syndrome Current Visit: Yes Status: Acute (2) Paroxysmal atrial fibrillation Current Visit: Yes Status: Acute (3) History of permanent cardiac pacemaker placement Current Visit: Yes Status: Acute Hospital Course: This patient was recently evaluated by Dr. Britton for symptoms of dizziness. 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 Because of that patient is advised to have permanent pacemaker implantation. She had the procedure done yesterday. Patient tolerated the procedure well. She had a dual-chamber permanent pacemaker. Pacemaker seems to function normally. Chest x-ray appears to be intact without any evidence of pneumothorax or hemothorax . The lead position appeared to be appropriate. She is being discharged home to continue home medications except hold eliquis until tomorrow evening. Patient will report if there is any bleeding or no swelling or pain. Advised to keep the left arm below the shoulder level. And is to avoid any heavy lifting, pushing or pulling. No driving for the next 3 to 4 weeks. Patient will keep the dressing dry until seen in the office in one week. Plan - Discharge Summary Discharge Rx Participant: No New Discharge Prescriptions: New Cephalexin [Keflex] 500 mg PO Q8HR 1 Days #9 cap Continue sitaGLIPtin [Januvia] 100 mg PO DAILY Atorvastatin [Lipitor] 5 mg PO HS Multivit-Min/FA/Lycopen/Lutein [Centrum Silver Tablet] 1 each PO DAILY Fish Oil/Dha/Epa [Fish Oil 1,200 mg Fish Oil] 1 each PO DAILY Calcium With Vit D 1 tab PO DAILY Famotidine (Unknown Dose) 1 tab PO DIRECTED Vitamin D (Unknown Dose) 1 tab PO DAILY Empagliflozin [Jardiance] 10 mg PO DAILY Discontinued Aspirin 81 mg PO DAILY Apixaban [Eliquis] 2.5 mg PO BID Discharge Medication List sitaGLIPtin [Januvia] 100 mg PO DAILY 11/17/16 [History] Atorvastatin [Lipitor] 5 mg PO HS 08/02/19 [History] Calcium With Vit D 1 tab PO DAILY 08/02/19 [History] Fish Oil/Dha/Epa [Fish Oil 1,200 mg Fish Oil] 1 each PO DAILY 08/02/19 [History] Multivit-Min/FA/Lycopen/Lutein [Centrum Silver Tablet] 1 each PO DAILY 08/02/19 [History] Empagliflozin [Jardiance] 10 mg PO DAILY 06/04/21 [History] Famotidine (Unknown Dose) 1 tab PO DIRECTED 06/04/21 [History] Vitamin D (Unknown Dose) 1 tab PO DAILY 06/04/21 [History] Cephalexin [Keflex] 500 mg PO Q8HR 1 Days #9 cap 06/17/21 [Rx] Follow up Appointment(s)/Referral(s): Wander Galvan MD [STAFF PHYSICIAN] - 07/06/21 10:15 am ([facility] MondayJune 23 at 3:00 PM post pacemaker insertion. July 06 at 10:15 AM is follow up appointment with Dr Galvan.) Ladan Cline MD [STAFF PHYSICIAN] - 1 Week Patient Instructions/Handouts: Moderate Sedation (ED), Pacemaker (GEN) Discharge Disposition: HOME SELF-CARE
[2021-06-17] MEDS ORDERED: NON FORMULARY DRUG (Fish Oil/Dha/Epa [Fish Oil 1,200 Mg Fish Oil] 1 EACH Capsule) PO SCH (09:00)
[2021-06-17] MEDS ORDERED: LINAGLIPTIN 5 MG TABLET PO SCH (09:00)
[2021-06-17] MEDS ORDERED: CALCIUM CARB-VIT D 500 MG-5 MCG TAB PO SCH (09:00)
[2021-06-17] MEDS ORDERED: CHOLECALCIFEROL 25 MCG (1000 IU) TABLET PO SCH (09:00)
[2021-06-17] MEDS ORDERED: Empagliflozin [Jardiance] PO SCH (09:00)
[2021-06-17] MEDS ORDERED: MULTIVITAMINS, THERA 1 EACH TAB PO SCH (09:00)
[2021-06-17 09:58] VITALS: BP 150/86; PULSE 67; RESP 18; TEMP 98.1
== END 2021-06-17 11:06 | disposition home or self-care (01) ==
LOC: CATHEP 07:23 → 6NMEDSUR 10:05 → CATHEP 06-17 11:06
PROVIDERS: ATTEND Internal Medicine Cardiovascular Disease
DX: I49.5 Sick sinus syndrome (principal); I48.0 Paroxysmal atrial fibrillation; E11.9 Type 2 diabetes mellitus without complications; I10 Essential (primary) hypertension; E78.5 Hyperlipidemia, unspecified; Z82.49 Family history of ischemic heart disease and other diseases of the circulatory system; Z88.8 Allergy status to other drugs, medicaments and biological substances; Z91.02 Food additives allergy status; Z79.01 Long term (current) use of anticoagulants; Z79.84 Long term (current) use of oral hypoglycemic drugs; Z79.82 Long term (current) use of aspirin; Z79.899 Other long term (current) drug therapy
CPT/HCPCS: 33208; 80048; 85025; 87635; 71046; C1769 ×2; C1892; C1898; C1785; J2250; J0690; J2001; J3010; Q9967

== ENCOUNTER 2022-06-30 07:40 | Day surgery (SDC) | payer MEDICARE ==
[2022-06-30] MEDS ORDERED: diazePAM 5 MG TAB PO STA (08:31)
[2022-06-30 08:58] LABS: Glucose,Whole Blood 185 mg/dL (70-110)
[2022-06-30 09:06] VITALS: TEMP 97.2
[2022-06-30 16:36] VITALS: RESP 16
[2022-06-30 16:58] VITALS: BP 137/64; PULSE 60
--- NOTE | 2022-06-30 18:45 | FL ---
Lumbar puncture and Myelogram. INDICATION: Pain FINDINGS: Fluoroscopy time: 44 seconds. Images obtained: 4. The procedure was explained to the patient. Risks complications and benefits were discussed. Alternat tyler were discussed. All questions were answered. Informed consent was obtained. A timeout was performed. The L4-5 level was chosen for access. This however is limited as there are posterior plates at both L 3-4 and L4-5. Maximum barrier sterile technique was utilized. The skin was cleansed with Betadine and the patient sterilely prepped and draped in the usual manner. The skin and deeper tissue was anesthe tized with 1% Lidocaine. Utilizing a 22-gauge spinal needle the spinal canal was placed. This was abl e to get towards but not into the thecal sac. No CSF return was obtained. No penetration into the the donaldo sac was felt to have occurred. Despite multiple attempts in a cooperative patient, thecal sac cou ld not be accessed. Alternatives should be considered. The patient tolerated the procedure well. Discussion regarding lack of access to the thecal sac occu r with the patient. Discharge instructions were discussed with the patient. Findings: None IMPRESSIONS: 1. Unsuccessful Lumbar Puncture.
== END 2022-06-30 12:26 | disposition home or self-care (01) ==
LOC: RADPROMAIN 07:40
PROVIDERS: ATTEND Orthopaedic Surgery Orthopaedic Surgery of the Spine
DX: M47.816 Spondylosis without myelopathy or radiculopathy, lumbar region (principal)
CPT/HCPCS: 62304; Q9966

== ENCOUNTER → 2022-07-08 | Outpatient (CLI) | payer MEDICARE ==
--- NOTE | 2022-07-08 09:02 | CT ---
EXAMINATION TYPE: CT lumbar spine wo con DATE OF EXAM: 07/08/2022 COMPARISON: CT chest 06/13/2017 HISTORY: 77-year-old female M47.816 back pain TECHNIQUE: Contiguous axial scanning of the lumbar spine without IV contrast. Coronal and sagittal re constructions performed. CT DLP: 656.3 mGycm Automated exposure control for dose reduction was used. FINDINGS: * Postsurgical changes at the GE junction. Possible underlying hiatal hernia. Correlate as to what w as done with prior surgery. * Hilar splenule. * Atherosclerotic calcifications abdominal aorta and iliac arteries. Superior endplate deformity of T12 is new compared to 06/13/2017 but still age indeterminate, probably subacute to chronic but should be correlated clinically. No retropulsion into the ventral spinal collin l. Moderate degenerative disc disease mid to lower lumbar spine with desiccated, narrowed, and bulging d iscs. Disc vacuum is present. Interspinous fusion hardware at L3-L4 and L4-L5. Bulging discs contribute to mild narrowing of the spinal canal L2-L3 and L3-L4. Possibly more moderate at L4-L5. Metal artifact limits evaluation of the spinal canal at some of thes e levels. Hypertrophic facet arthropathy mid to lower lumbar spine. Alignment is maintained. On the right, changes results in moderate neural foraminal stenoses at L5-S1. More moderate to severe at L3-L4 and L4-L5. On the left, changes old in moderate neural foraminal stenosis at L3-L4 and L4-L5. More moderate to s evere at L5-S1. IMPRESSION: 1. SUPERIOR ENDPLATE FRACTURE OF T12 IS NEW COMPARED TO 06/13/2017 BUT STILL AGE INDETERMINATE. SUSPECT A SUBACUTE TO CHRONIC COMPRESSION INJURY BUT FURTHER CLINICAL CORRELATION IS RECOMMENDED. NO RETROPU LSION INTO THE SPINAL CANAL. 2. HYPERTROPHIC FACET ARTHROPATHY AND MODERATE DEGENERATIVE DISC DISEASE MID TO LOWER LUMBAR SPINE. 3. PREVIOUS INTERSPINOUS FUSION L3-L4 AND L4-L5. 4. POSSIBLE MODERATE SPINAL CANAL STENOSIS AT L4-L5 AND MILD AT L2-L3 AND L3-L4. 5. VARIABLE NEUROFORAMINAL STENOSES MID AND LOWER LUMBAR SPINE OUTLINED ABOVE.
== END | disposition home or self-care (01) ==
LOC: RADCTMAIN 07:37
PROVIDERS: ATTEND Orthopaedic Surgery Orthopaedic Surgery of the Spine
DX: M47.816 Spondylosis without myelopathy or radiculopathy, lumbar region (principal); M48.061 Spinal stenosis, lumbar region without neurogenic claudication; M51.36 Other intervertebral disc degeneration, lumbar region; M99.73 Connective tissue and disc stenosis of intervertebral foramina of lumbar region
CPT/HCPCS: 72131

== ENCOUNTER 2022-11-02 09:59 | Day surgery (SDC) | payer MEDICARE ==
[2022-10-31 11:27] VITALS: BMI 25.4
[~2022-11-02 09:59] MED LIST changes: +LIDOCAINE 1% (10MG/ML) FOR IV START INTRADERMA PRN; -ceFAZolin 1 GM in SODIUM CHLORIDE 0.9% IRRIG BTL 250 ML IRRIGATION PRN
[2022-11-02 11:10] LABS: Glucose,Whole Blood 130 mg/dL (70-110)
[2022-11-02] MEDS: LACTATED RINGERS 1,000 ML IV SCH ×2 (11:11→11:27)
[2022-11-02] MEDS ORDERED: LIDOCAINE 2% INJ 20 MG/ML (2 ML VIAL) ONE (11:31)
[2022-11-02] MEDS ORDERED: PROPOFOL 10 MG/ML 20 ML VIAL IV ONE (11:31)
--- NOTE | 2022-11-02 11:39 | P.PCN ---
Date of Procedure: 11/02/22 Procedure(s) Performed: BRIEF HISTORY: Patient is a 77-year-old, pleasant, white female scheduled for an upper endoscopy as a part of evaluation of GERD/history of Mora's esophagus. On omeprazole 20 mg twice daily. Lately has been having so throat, heartburn and intermittent dysphagia to solids. PROCEDURE PERFORMED: Esophagogastroduodenoscopy with biopsy. PREOPERATIVE DIAGNOSIS: Intermittent dysphagia to solids/GERD/Mora's esophagus. IV sedation per anesthesia. PROCEDURE: After informed consent was obtained, the patient was brought into the endoscopy unit. IV sedation was administered by Anesthesia under continuous monitoring. Initially the Olympus GIF-140 video endoscope was inserted into the mouth. Esophagus intubated without any difficulty. It was gradually advanced into the stomach and duodenum and carefully examined. The bulb and the second part of the duodenum appeared normal. The scope at this time was withdrawn to the stomach, adequately insufflated with air, and upon careful examination, mucosa of the antrum, body, cardia and the fundus appeared normal. Small amount of retained solid food noted in the stomach suggestive of gastroparesis. Recent fundoplication appeared intact. The scope was then withdrawn into the esophagus. Small hiatal hernia noted. The GE junction was located at 35 cm from the incisors. It was a short segment of Mora's esophagus extending 3 mm proximal to the GE junction was biopsied. The rest of the esophagus appeared normal. There were no erosions or ulcerations seen and the patient tolerated the procedure well. IMPRESSION: 1. Small hiatal hernia. 2. Short segment Mora's esophagus extending 3 mm proximal to the GE junction status post multiple biopsies. 3. Retained food in the stomach suggestive of gastroparesis 4. No evidence of esophageal stricture RECOMMENDATIONS: The findings of this examination were discussed with the patient as well as a family. She will continue with omeprazole 20 mg twice daily and follow antireflux measures. If the biopsy confirms the presence of Mora's esophagus he can have a repeat upper endoscopy in 3 years..
[2022-11-02 13:16] VITALS: BP 107/62; PULSE 53; RESP 16; TEMP 96.7
== END 2022-11-02 12:15 | disposition home or self-care (01) ==
LOC: ORWHC2ENDO 09:59
PROVIDERS: ATTEND Internal Medicine Gastroenterology
DX: K22.70 Barrett's esophagus without dysplasia (principal); K44.9 Diaphragmatic hernia without obstruction or gangrene; K21.9 Gastro-esophageal reflux disease without esophagitis; I10 Essential (primary) hypertension; E11.9 Type 2 diabetes mellitus without complications; E78.5 Hyperlipidemia, unspecified; M19.90 Unspecified osteoarthritis, unspecified site; Z95.0 Presence of cardiac pacemaker; Z79.02 Long term (current) use of antithrombotics/antiplatelets; Z88.5 Allergy status to narcotic agent; Z79.84 Long term (current) use of oral hypoglycemic drugs; Z91.041 Radiographic dye allergy status; Z79.899 Other long term (current) drug therapy
CPT/HCPCS: 43247; 88305; 43239; J2704; J2001

== ENCOUNTER → 2023-02-17 | Outpatient (CLI) | payer MEDICARE ==
--- NOTE | 2023-02-17 13:26 | XR ---
EXAMINATION TYPE: XR chest 2V DATE OF EXAM: 02/17/2023 COMPARISON: 06/17/2021 INDICATION: Presurgical evaluation TECHNIQUE: Frontal and lateral views of the chest are obtained. FINDINGS: The heart size is normal. Pacemaker overlies left chest The pulmonary vasculature is normal. The lungs are clear. IMPRESSION: 1. No acute pulmonary process.
[2023-02-17 14:35] LABS: Partial Thromboplastin Time 23.1 sec (22.0-30.0); Prothrombin Time 11.1 sec (10.0-12.5)
[2023-02-17 18:20] LABS: Basophils # (A) 0.03 X 10*3/uL (0.00-0.10); Basophils % (A) 0.3 %; Eosinophils % (A) 1.2 %; HCT 44.7 % (37.2-46.3); HGB 14.8 g/dL (12.0-15.0); Lymphocytes # (A) 1.62 X 10*3/uL (0.90-5.00); Lymphocytes % (A) 18.8 %; MCH 33.4 pg (27.0-32.0); MCHC 33.1 g/dL (32.0-37.0); MCV 100.9 FL (80.0-97.0); Mean Platelet Volume 10.1 FL (9.5-12.2); Monocytes # (A) 0.65 X 10*3/uL (0.20-1.00); Monocytes % (A) 7.6 %; NRBC Per 100 WBC 0 X 10*3/uL (0.00-0.01); Neutrophils # (A) 6.15 X 10*3/uL (1.80-7.70); Neutrophils % (A) 71.5 %; Platelet Count 289 X 10*3/uL (140-440); RBC 4.43 X 10*6/uL (4.10-5.20); RDW 12.6 % (11.5-14.5)
[2023-02-17 19:39] LABS: BUN/Creat Ratio 33.67 Ratio (12.00-20.00); Blood Urea Nitrogen 30.3 mg/dL (9.0-27.0); Calcium 10.5 mg/dL (8.7-10.3); Carbon Dioxide 24.3 mmol/L (21.6-31.8); Chloride 102 mmol/L (96-109); Glucose 170 mg/dL (70-110); Potassium 4.7 mmol/L (3.5-5.5); Sodium 141 mmol/L (135-145)
[2023-02-17 21:41] LABS: Appearance,Urine Cloudy (Clear); Bacteria,Urine 2+ (None Seen); Bilirubin,Urine Negative (Negative); Blood,Urine Trace (Negative); Calcium Oxalate Crystals,Urine Present (None Seen); Color,Urine Yellow (Yellow); Ketones,Urine Negative (Negative); Nitrite,Urine Negative (Negative); PH, Urine 5.5; Specific Gravity,Urine >1.035 (1.001-1.030); Urobilinogen,Urine 0.2; Yeast (UA) Present (None Seen)
== END | disposition home or self-care (01) ==
LOC: LABWHC1 12:14
PROVIDERS: ATTEND Orthopaedic Surgery Orthopaedic Surgery of the Spine
DX: Z01.812 Encounter for preprocedural laboratory examination (principal); M48.07 Spinal stenosis, lumbosacral region; I23.1 Atrial septal defect as current complication following acute myocardial infarction; R94.31 Abnormal electrocardiogram [ECG] [EKG]
CPT/HCPCS: 36415; 71046; 80048; 81001; 85025; 85610; 85730; 86850; 86900; 86901; 87070; 93005

== ENCOUNTER 2023-03-01 06:23 | Observation (INO) | payer MEDICARE ==
[2023-02-22 12:15] VITALS: BMI 24.1
[~2023-03-01 06:23] MED LIST changes: -LIDOCAINE 1% (10MG/ML) FOR IV START INTRADERMA PRN; +ceFAZolin 1,000 MG in SODIUM CHLORIDE 0.9% IRRIGATIO 1,000 ML IRRIGATION PRN
[2023-03-01] MEDS ORDERED: ONDANSETRON 4 MG/2 ML VIAL IVP ONE (07:00)
[2023-03-01] MEDS ORDERED: DEXAMETHASONE SOD PHOSPHATE 4 MG/ML 1 ML VIAL IV ONE (07:00)
[2023-03-01] MEDS ORDERED: ONDANSETRON 4 MG/2 ML VIAL ONE (07:13)
[2023-03-01] MEDS: LACTATED RINGERS 1,000 ML IV SCH (07:14)
[2023-03-01 07:45] LABS: Glucose,Whole Blood 166 mg/dL (70-110)
[2023-03-01] MEDS ORDERED: MIDAZOLAM 2 MG/2 ML VIAL ONE (08:25)
[2023-03-01] MEDS ORDERED: fentaNYL (PF) 50 MCG/ML 2 ML AMP ONE (08:25)
[2023-03-01] MEDS ORDERED: PROPOFOL 10 MG/ML 20 ML VIAL IV ONE (08:25)
[2023-03-01] MEDS ORDERED: GLYCOPYRROLATE 0.2 MG/ML 2 ML VIAL ONE (08:25)
[2023-03-01] MEDS ORDERED: NEOSTIGMINE 1 MG/ML 10 ML VIAL ONE (08:25)
[2023-03-01] MEDS ORDERED: SUCCINYLCHOLINE CHLORIDE 200 MG/10 ML VIAL IV ONE (08:25)
[2023-03-01] MEDS ORDERED: PHENYLEPHRINE 10 MG/ML VIAL ONE (08:25)
[2023-03-01] MEDS ORDERED: KETAMINE HCL IN 0.9 % NACL 50 MG/5 ML SYRINGE ONE (08:25)
[2023-03-01] MEDS ORDERED: LIDOCAINE 1% INJ 10MG/ML (20 ML MDV) ONE (08:25)
[2023-03-01] MEDS ORDERED: ROCURONIUM 10 MG/ML (5 ML VIAL) IV ONE (08:25)
[2023-03-01] MEDS ORDERED: LIDOCAINE 0.5%-EPI 1:200,000 50 ML VIAL SQ ONE (08:30)
[2023-03-01] MEDS ORDERED: THROMBIN (BOVINE) 5,000 UNIT VIAL TOPICAL ONE (08:30)
[2023-03-01] MEDS ORDERED: GELATIN SPONGE,ABSORB (LARGE) 1 EACH SPONGE TOPICAL ONE (08:30)
[2023-03-01] MEDS ORDERED: LACTATED RINGERS 1,000 ML IV ONE (09:49)
[2023-03-01] MEDS ORDERED: ONDANSETRON 4 MG/2 ML VIAL IVP PRN (11:37)
[2023-03-01] MEDS ORDERED: BENZOCAINE/MENTHOL LOZENG 1 EACH LOZENGE MUCOUS MEM PRN (11:37)
--- NOTE | 2023-03-01 11:48 | P.OP ---
Date of Procedure: 03/01/23 Preoperative Diagnosis: Spinal stenosis L5-S1, lower extremity radiculopathy, lower extremity weakness, degenerative disc disease, facet arthrosis Postoperative Diagnosis: Same Anesthesia: GETA Pathology: none sent Condition: stable Disposition: PACU Description of Procedure: DESCRIPTION OF PROCEDURE(S): BRIEF OPERATIVE NOTE Preoperative Diagnosis: Spinal stenosis L5-S1, lower extremity radiculopathy, lower extremity weakness, degenerative disc disease, facet arthrosis Postoperative Diagnosis: Spinal stenosis L5-S1, lower extremity radiculopathy, lower extremity weakness, degenerative disc disease, facet arthrosis Procedure: Laminectomy and decompression L5-S1 Computer CT navigation aided Minimally invasive Posterior lat eral decompression and facet fusion L5-S1 Minimally invasive Transforaminal lumbar interbody fusion for a 360 fusion L5-S1 Discectomy for decompression L5-S1 Placement of interbody graft L5-S1 Use of computer navigation for fusion and placement of hardware Local autogenous bone grafting Aspiration of bone marrow from the vertebral body pedicle L5 on the right Use of bone graft extenders Surgeon: Dr. Rowell Boiler Fitter: Nawaf WILLIAM who is present throughout the entire the case persistence during positioning, dissection, exposure, visualization, and all crucial elements of the case as well as closure. Anesthesia: General anesthesia Estimated blood loss: Approximately 200 mL Complications: None apparent Components implanted: K2M minimally invasive Rittman pedicle screw system withscrews measuring 6.5 mm in diameter to rods one peek interbody cage with 10 mL of osteo amp bio4 bone graft substitute and 30 mL of the BX bone fibers to supplement the local autogenous bone graft and bone marrow aspirate Disposition: To recovery room in good stable condition. OPERATIVE INDICATIONS The patient has had severe issues at their lower extremity in her lower back over the past year with significant worsening over the past several months. Over the past few months the patient had pain at their back and their lower extremities. In the past the patient had been having neurogenic claudication and was having pain in her bilateral lower extremities with some radiculopathy. The patient in the past had undergone decompression and placement of interlaminar stabilizers and L3 4 and L4 5. She did very well with this procedure had excellent relief of lower extremities. However over the past year she's been developing worsening pain which was a new pain for her. She was developing specific radicular symptoms down the back of her right leg to her right calf and heel. She was found have significant changes at L5-S1 with significant osteophytic spurring and severe foraminal stenosis at L5-S1 which correlated well with her low back and lower extremity symptoms. The L3 4 and L4 5 levels appeared stable. We discussed different treatment options and the different interventions. She had been through aggressive conservative treatment and she actually had good short-term relief with epidural steroid injections L5- S1. However this was not lasting for her which was continued have severe problems. We discussed various treatment options including possibly surgery ranging from decompression alone to the possibility of surgical intervention. I felt that given the amount of facet arthrosis and disc degeneration that she would have significant instability and likely recurrence of her stenosis if she was not stabilized at time of surgery. I felt that the best surgical option for her would be decompression and fusion at L5-S1. The patient is having severe radicular symptoms at their lower extremity with weakness. The patient is having significant pain in their back. They are unable to obtain any comfort. We did aggressive conservative treatment with medications therapy and interventional pain management however thery were not having any relief. The patient has been through conservative treatment. We discussed various treatment options including surgery, and the patient wishes to proceed with surgery We discussed the risk, patient's alternatives and benefits of surgery including but not limited to, risk of bleeding risk of infection, risk of need for further surgery, risk of decreased, loss of motion, muscle function, malunion nonunion, hardware failure, nerve damage, paralysis, heart attack, blindness and . They understood issues with the current pandemic and the possibility of exposure. OPERATIVE SUMMARY After discussing all the risks, patient alternatives and benefits at length, the patient elected to proceed with surgical intervention, signed informed consent, and presented for their procedure. The patient was seen and examined in the preoperative holding area and the surgical site was marked. The patient was g iven antibiotics and brought to the operating room. The patient was sedated and intubated by anesthesia in standard fashion. The patient was positioned on to the operating room table in a prone position on the appropriate frame which was well-padded and well molded. We were careful to pad any bony prominences and pressure points. We were careful to maintain the patient's cervical spine and good neutral alignment and position throughout. The patient was prepped and draped in a normal standard fashion. An appropriate timeout and keystone protocol performed. We were able to proceed with the surgery. The local wound area was infiltrated with local anesthetic. Over the right iliac crest I was able to make small stab incisions and establish a guidepin screw fixation to the iliac crest 2. I was able place the computer referencing device over the guidepins to establish an appropriate reference point for the Ziem CT navigation. We then were able to place patient in an appropriate drape and do a navigation spin for visualization and 3-D reconstruction of the lumbar spine. I was able utilize C-arm guidance and navigation to establish appropriate position over the pedicles bilaterally at the appropriate levels . With the appropriate levels confirmed was able to make small incisions over the appropriate pedicle sites bilaterally. Utilizing the computer navigation device I was able to establish bony landmarks at the right iliac crest for a bony reference point for the navigation device. I was able to establish a Jamshidi needle over the lateral aspect of the pedicle and advanced the trocar into the pedicle being careful not to breech superiorly inferiorly medially or laterally using computer navigation device. Position was confirmed regularly with AP and lateral images on C-arm and with the computer navigation device at the appropriate levels bilaterally. I was able to establish the trocar into the pedicle appropriately into the posterior aspect of the vertebral body bilaterally at the appropriate levels. This was done at each of the pedicle positions and each of the vertebrae. We had to do 2 separate specimens as the first placement of the Jamshidi needles was not correlated well. We do not see evidence of Dictation but we had to reposition the Jamshidi and the guidewires at L4 and L5. His able to get excellent position and alignment. At the superior vertebrae I was able to take approximately 15 mL of bone aspiration for use later in the case to supplement the allograft and autograft bone. I was able place the guidewire into the trocar and into the vertebral body appropriately under C-arm guidance. Dissection was taken down over the wire to the appropriate starting position for the screw placed. The appropriate length screw was chosen, threaded over the guidewire and screwed appropriately into the pedicle and vertebral body under C-arm guidance in excellent alignment and position with good bony purchase. This is done at each of the screw sites at the appropriate levels at L4 and L5 bilaterally. With the screws intact I extended the incision to connect the screw hole sites on the most symptomatic side right. I dissected down to establish access over the pars and lamina to the base of the spinous process. I was able to expose the facet joint. The capsule the facet was taken down and showed some facet arthrosis at the joint. I was able to use a combination of curettes and Kerrison rongeurs and a high-speed drill to take down the facet joint and do a facetectomy. I was able get excellent foraminal decompression and central decompression with undermining across midline to perform a laminectomy centrally and contralaterally. I was able get good central decompression. The ligamentum flavum was taken down to further decompress centrally and at bilateral neural foramen. I was able to expose the disc space and visualize the traversing nerve root. Note was made of some disc protrusion and disc herniation that was abutting the traversing nerve root at the level causing further compression of the nerve root. I was able to establish a annulotomy at the appropriate level protecting soft tissue and neural structures. Note was made of some disc desiccation at the disc. I performed a complete discectomy with accommodation of curettes and rasps and scrapers. I was able get good endplate preparation at the disc space. I sized for the appropriate size interbody spacer protecting the soft tissue and neural structures. The wound was copiously irrigated and suctioned dry. There is no evidence of any dural tear or leak. Try to explore at the areas below the lamina at L5 and I was not able to find any evidence of dural leak or tear. I was able to pack the disc space with local autogenous bone graft as well as a small amount of bone graft which was also placed into the interbody cage itself. Protecting the soft tissue structures and neural structures I was able place the interbody cage in good alignment and good position with good fit and fill at the interbody space at L5-S1. Position was confirmed with C-arm guidance. Good hemostasis maintained. There is no evidence of any dural tear or leak. The wound was irrigated and suctioned dry. With the hardware intact, intraoperative C-arm imaging was again taken which showed good alignment and position of the hardware at the appropriate levels at L5-S1. We were then able to measure, contour and place the rods and appropriate hardware bilaterally. I was able to place capcrews, tighten them down, and torque them with the torque screwdriver appropriately. With this intact I was able to place the local autogenous bone graft with additional bone graft enhancer as necessary into the posterior lateral gutters over the decorticated transverse processes and facet joints on the contralateral side. The remainder of the bone graft was placed over the facet joint on the contralateral side after taking down the facet joint capsule. With the bone graft intact, a stable construct, and good decompression at the appropriate levels, we were able to proceed with closure. Good hemostasis was maintained. There is no evidence of dural tear or leak. The fascia was closed for a watertight closure. he subcuticular tissue was closed with absorbable suture. The wound was cleaned and dried and dressed with the appropriate dressing. The drapes were broken down. The patient was gently rolled back onto their hospital bed being careful to maintain their cervical spine and good neutral alignment and position. They were woken up by anesthesia, extubated, and brought to the recovery room in good stable condition. The patient will be admitted to the hospital for appropriate postoperative care, medical management and monitoring. We will continue to follow them closely about the postoperative course.
--- NOTE | 2023-03-01 11:50 | FL ---
EXAMINATION TYPE: FL guidance operating room, XR lumbar spine 2 or 3V Intraoperative/procedural fluor oscopic services were provided. Total fluoroscopy time is 0.36 minutes with a total of 6 submitted im ages to PACS. Please see the operative/procedural note for further details. DAP: 3545.9 cGycm2
[2023-03-01 11:53] LABS: Glucose,Whole Blood 169 mg/dL (70-110)
[2023-03-01] MEDS: HYDROmorphone 0.5 MG/0.5 ML SYRINGE IVP PRN ×3 (12:31→15:43)
[2023-03-01] MEDS: SODIUM CHLORIDE 0.9% 1,000 ML IV SCH (14:29)
[2023-03-01] MEDS ORDERED: DEXTROSE 50% SYRINGE 50 ML IVP PRN ×2 (14:54)
--- NOTE | 2023-03-01 14:56 | P.CONS ---
History of Present Illness - Reason for Consult Consult date: 03/01/23 Medical management Requesting physician: Shyla Rowell - History of Present Illness This is a 77-year-old female patient who presented for an elective laminectomy and decompression of L5-S1 and facet fusion of L5-S1. Patient has a past medical history of spinal stenosis and lower extremity radiculopathy. Additional medical history includes permanent pacemaker placement in June 2021 secondary to sick sinus syndrome patient also has a history of paroxysmal atrial fibrillation normally maintained on eliquis this has been on hold per surgical protocol. Patient is currently resting comfortably in bed she remains sleepy from anesthesia but is alert and follows commands and questions. Patient denies chest pain or shortness of breath. Patient denies nausea vomiting or diarrhea. Patient denies any urinary burning or frequency. Current vital signs temp 97.7, heart rate 57, respiratory rate 16, blood pressure 131/61 with a pulse ox of 100% on 2 L. Review of Systems Please refer to HPI otherwise unremarkable Past Medical History Past Medical History: Diabetes Mellitus, GERD/Reflux, Hyperlipidemia, Hypertension, Osteoarthritis (OA) Additional Past Medical History / Comment(s): PAST MIGRAINES, IBS, DIVERTICULOSIS, HX COLON POLYPS, ENVIRONMENTAL ALLERGIES, HIATAL HERNIA HAD SURGERY (2002) AND CAME BACK History of Any Multi-Drug Resistant Organisms: None Reported Past Surgical History: Adenoidectomy, Appendectomy, Bladder Surgery, Hernia Rep air, Hysterectomy, Joint Replacement, Orthopedic Surgery, Pacemaker, Tonsillectomy Additional Past Surgical History / Comment(s): HIATAL HERNIA REPAIR (2002), RIGHT TOTAL KNEE REPLACEMENT, LEFT KNEE ARTHROSCOPy, laminectomy, left rotator cuff repair, 10 STITCHES IN HEAD DUE TO INJURY. Past Anesthesia/Blood Transfusion Reactions: No Reported Reaction Type of Cardiac Device: Permanent Pacemaker, AICD Device Placement Date:: June 2021 Smoking Status: Never smoker - Past Family History Mother Family Medical History: Cancer Additional Family Medical History / Comment(s): Stomach cancer. Sister(s) Family Medical History: Cancer Medications and Allergies Home Medications Medication Instructions Recorded Confirmed Type sitaGLIPtin [Januvia] 100 mg PO DAILY 11/17/16 03/01/23 History Calcium With Vit D 1 tab PO DAILY 08/02/19 03/01/23 History Fish Oil/Dha/Epa [Fish Oil 1,200 1 each PO DAILY 08/02/19 03/01/23 History mg Fish Oil] Multivit-Min/FA/Lycopen/Lutein 1 each PO DAILY 08/02/19 03/01/23 History [Centrum Silver Tablet] Empagliflozin [Jardiance] 10 mg PO DAILY 06/04/21 03/01/23 History Vitamin D (Unknown Dose) 1 tab PO DAILY 06/04/21 03/01/23 History Apixaban [Eliquis] 2.5 mg PO BID 06/23/22 03/01/23 History Atorvastatin [Lipitor] 10 mg PO DAILY 06/23/22 03/01/23 History Famotidine 40 mg PO BID 02/22/23 03/01/23 History Nitrofurantoin Monohyd/M-Cryst 100 mg PO BID 02/22/23 03/01/23 History [Nitrofurantoin [place]-Mcr 100 mg] Allergies Allergy/AdvReac Type Severity Reaction Status Date / Time red dye Allergy Rash/Hives Verified 03/01/23 07:12 codeine AdvReac Confusion Verified 03/01/23 07:12 Physical Exam Vitals: Vital Signs Temp Pulse Pulse Resp BP BP Pulse Ox 03/01/23 13:30 57 L 16 131/61 100 03/01/23 13:15 56 L 16 118/62 100 03/01/23 13:00 56 L 16 121/60 100 03/01/23 12:45 55 L 16 127/59 100 03/01/23 12:30 60 16 146/80 100 03/01/23 12:16 57 L 16 137/66 100 03/01/23 12:01 55 L 16 121/55 100 03/01/23 11:46 96.8 F L 55 L 16 115/62 100 03/01/23 07:20 97.7 F 77 18 154/80 99 Intake and Output 02/28/23 03/01/23 03/01/23 22:59 06:59 14:59 Intake Total 2151 Output Total 350 Balance 1801 Intake: IV 2151 Output: Urine 150 Estimated Blood Loss 200 Other: Weight 58.7 kg Head normocephalic Neck supple Lungs clear to auscultation bilaterally no wheezing or crackles Heart regular rate and rhythm S1-S2, no rub or gallop Abdomen is soft nontender nondistended positive bowel sounds no hepatospleno megaly Extremities no edema Neuro alert and orientated to 3 Results Labs: Abnormal Lab Results - Last 24 Hours (Table) 03/01/23 03/01/23 Range/Units 07:42 11:51 POC Glucose (mg/dL) 166 H 169 H (70-110) mg/dL Assessment and Plan Assessment: 1. Status post laminectomy and decompression of L5-S1 and fusion of L5 to S1 with Dr. Rowell on 03/01/2023 2. History of spinal stenosis and lower extremity radiculopathy 3. History of permanent pacemaker placement in June 2021 4. History of paroxysmal atrial fibrillation. Patient is maintained on eliquis this has been on hold per surgical services. Will defer to surgical services when patient is to resume this medication 5. History of GERD 6. History of diabetes mellitus type 2 patient started on sliding scale insulin Thank you for this consultation we will continue to follow patient closely throughout stay Laboratory ordered for a.m. Time with Patient: Greater than 30 (Greater than 60% of the total time spent in counseling and coordination of care)
[2023-03-01 17:13] LABS: Glucose,Whole Blood 183 mg/dL (70-110)
[2023-03-01] MEDS: INSULIN ASPART (NovoLOG) 100 UNIT/ML VIAL SQ SCH ×2 (17:13→22:06)
[2023-03-01] MEDS: HYDROcodone/APAP 5-325MG 1 EACH TAB PO PRN (20:16)
[2023-03-01] MEDS: FAMOTIDINE 20 MG TAB PO SCH (20:17)
[2023-03-01 21:57] LABS: Glucose,Whole Blood 194 mg/dL (70-110)
[2023-03-01] MEDS: NITROFURANTOIN MONOHYD/M-CRYST 100 MG CAP PO SCH (22:06)
[2023-03-02] MEDS: SODIUM CHLORIDE 0.9% 1,000 ML IV SCH ×2 (00:32→13:58)
[2023-03-02] MEDS: HYDROmorphone 0.5 MG/0.5 ML SYRINGE IVP PRN ×2 (00:35→04:53)
[2023-03-02] MEDS: LACTATED RINGERS 1,000 ML IV SCH (03:52)
[2023-03-02 05:51] LABS: Glucose,Whole Blood 226 mg/dL (70-110)
[2023-03-02] MEDS: INSULIN ASPART (NovoLOG) 100 UNIT/ML VIAL SQ SCH ×4 (06:09→20:54)
[2023-03-02] MEDS: HYDROcodone/APAP 5-325MG 1 EACH TAB PO PRN ×3 (07:41→20:55)
[2023-03-02] MEDS ORDERED: NON FORMULARY DRUG (Fish Oil/Dha/Epa [Fish Oil 1,200 Mg Fish Oil] 1 EACH Capsule) PO SCH (09:00)
[2023-03-02] MEDS: SENNOSIDES-DOCUSATE SODIUM 1 EACH TAB PO SCH (10:09)
[2023-03-02] MEDS: APIXABAN 2.5 MG TABLET PO SCH ×2 (10:09→20:55)
[2023-03-02] MEDS: LINAGLIPTIN 5 MG TABLET PO SCH (10:09)
[2023-03-02] MEDS: FAMOTIDINE 20 MG TAB PO SCH ×2 (10:09→20:55)
[2023-03-02] MEDS: CALCIUM CARB-VIT D 500 MG-5 MCG TAB PO SCH (10:09)
[2023-03-02] MEDS: ATORVASTATIN 10 MG TAB PO SCH (10:09)
[2023-03-02] MEDS: MULTIVITAMINS, THERA 1 EACH TAB PO SCH (10:09)
[2023-03-02] MEDS: CHOLECALCIFEROL 25 MCG (1000 IU) TABLET PO SCH (10:09)
[2023-03-02] MEDS: NITROFURANTOIN MONOHYD/M-CRYST 100 MG CAP PO SCH ×2 (10:10→20:55)
--- NOTE | 2023-03-02 10:42 | P.PN ---
Progress Note - Text Progress Note Date: 03/02/23 Postoperative day #1 Patient is seen and examined today at bedside. The patient has some pain around the surgical site as expected. Pain is being controlled with medication. She has been ambulatory with therapy with a walker. She feels that she is making good progress. There is still some numbness at her right leg but there may be some improvement thus far Physical Exam Afebrile with stable vital signs Abdomen is soft nontender. Chest has good excursion deep and space expiration The incision site is clean dry and intact. No erythema there is no purulence. Her back appears clear overall Extremities have not had neurologic change from prior to surgery.she has sustained dorsal flexion plantar flexion and EHL intact Calves and thighs were soft nontender without evidence of DVT. Assessment/Plan Postoperative day #1 status post minimally invasive decompression and fusion L5-S1 for her spinal stenosis with lower extremity radiculopathy and degenerative disc disease and lower extremity radiculopathy Patient is progressing as expected from the surgery. She is mobilizing well. She still having some symptoms in her right leg but I think that this is improving. We will continue to increase the patient's mobilization with therapy. We will continue pain control with oral or IV medications. We'll continue to follow patient closely. If she continues to make progress she may be able go home on Monday or Monday.
[2023-03-02] MEDS: DAPAGLIFLOZIN PROPANEDIOL 5 MG TABLET PO SCH (11:00)
[2023-03-02 11:14] LABS: Basophils # (A) 0.04 X 10*3/uL (0.00-0.10); Basophils % (A) 0.3 %; Eosinophils # (A) 0.02 X 10*3/uL (0.04-0.35); Eosinophils % (A) 0.1 %; HCT 38.4 % (37.2-46.3); HGB 12.7 g/dL (12.0-15.0); Lymphocytes # (A) 0.52 X 10*3/uL (0.90-5.00); Lymphocytes % (A) 3.7 %; MCHC 33.1 g/dL (32.0-37.0); MCV 99.7 FL (80.0-97.0); Mean Platelet Volume 9.8 FL (9.5-12.2); Monocytes # (A) 1.02 X 10*3/uL (0.20-1.00); Monocytes % (A) 7.3 %; NRBC Per 100 WBC 0 X 10*3/uL (0.00-0.01); Neutrophils # (A) 12.27 X 10*3/uL (1.80-7.70); Platelet Count 175 X 10*3/uL (140-440); RBC 3.85 X 10*6/uL (4.10-5.20); RDW 12.9 % (11.5-14.5); WBC 13.95 X 10*3/uL (4.50-10.00)
[2023-03-02 11:32] LABS: BUN/Creat Ratio 20.71 Ratio (12.00-20.00); Blood Urea Nitrogen 14.5 mg/dL (9.0-27.0); Calcium 8.7 mg/dL (8.7-10.3); Carbon Dioxide 24.8 mmol/L (21.6-31.8); Chloride 103 mmol/L (96-109); Glucose 212 mg/dL (70-110); Potassium 4.2 mmol/L (3.5-5.5); Sodium 137 mmol/L (135-145)
[2023-03-02 11:47] LABS: Glucose,Whole Blood 248 mg/dL (70-110)
[2023-03-02 16:37] LABS: Glucose,Whole Blood 163 mg/dL (70-110)
[2023-03-02 20:50] LABS: Glucose,Whole Blood 168 mg/dL (70-110)
[2023-03-03] MEDS: LACTATED RINGERS 1,000 ML IV SCH (02:50)
[2023-03-03] MEDS: SODIUM CHLORIDE 0.9% 1,000 ML IV SCH (02:50)
[2023-03-03 05:49] LABS: Glucose,Whole Blood 180 mg/dL (70-110)
[2023-03-03] MEDS: HYDROcodone/APAP 5-325MG 1 EACH TAB PO PRN (06:21)
[2023-03-03] MEDS: INSULIN ASPART (NovoLOG) 100 UNIT/ML VIAL SQ SCH ×2 (06:21→13:34)
[2023-03-03 08:01] VITALS: BP 152/70; PULSE 81; RESP 18; TEMP 98.3
--- NOTE | 2023-03-03 08:28 | P.DS ---
Providers Date of admission: 03/02/23 15:05 Expected date of discharge: 03/03/23 Attending physician: Shyla Rowell Consults: 03/01/23 11:37 Consult Physician Routine Consulting Provider: Chely Ziegler Consult Reason/Comments: Medical management Do you want consulting provider notified?: Yes Primary care physician: Val Walsh - Discharge Diagnosis(es) (1) Radiculopathy with lower extremity symptoms Current Visit: Yes Status: Acute (2) DDD (degenerative disc disease), lumbosacral Current Visit: Yes Status: Acute (3) Facet arthropathy, lumbosacral Current Visit: Yes Status: Acute (4) Lumbosacral spinal stenosis Current Visit: Yes Status: Acute (5) Right leg weakness Current Visit: Yes Status: Acute (6) Low back pain Current Visit: Yes Status: Acute (7) Status post lumbar spinal fusion Current Visit: Yes Status: Acute (8) Hyperlipidemia Current Visit: Yes Status: Acute Hospital Course: This is a pleasant 77-year-old female who presented with L5-S1 spinal stenosis, right lower extremity radiculopathy with weakness, lumbar facet arthrosis, and degenerative disc disease who who failed outpatient conservative therapy. She was admitted for an L5-S1 minimally invasive posterior lateral decompression and fusion with transforaminal lumbar interbody fusion. The patient tolerated the procedure well and did well postoperatively. She has been able to increase her mobility and ambulation. She is ambulating with assistance of a walker. She has a walker at home. Her pain has been well-controlled. She is eating and voiding without any significant difficulty. She feels she is ready for discharge today. Condition on day of discharge stable. Patient will be discharged home. Patient was cleared preoperatively for surgery by Dr. Walsh. Patient currently denies any nausea, vomiting, fever, or chills. Patient is eating and voiding freely without difficulty. Patient may shower Optifoam dressing intact. Patient may remove Optifoam dressing in 3 days and shower without a dressing at that time. Patient should refrain from driving until at least after their first follow-up appointment in the office. Patient should avoid excessive bending, lifting, and twisting; no lifting greater than 10 pounds. MAPS has been reviewed today, 03/03/2023, with an Overall Overdose Risk Score of 20. An "Opiod Start Talking" Form has been signed and placed in the patient's chart. A prescription has been written for hydrocodone 5 mg/325 mg, 1 tab, every 6 hours as needed for acute pain, dispensed #28. She is also given a prescription for baclofen 10 mg, 1 tab, 3 times a day, as needed for muscle spasm, dispensed #60 and Senokot-S, 1, twice a day, as needed for constipation, dispensed #60. Prescriptions are sent to the [facility] pharmacy located with an [facility] per request of the patient. Patient's other medical diagnoses include hyperlipidemia Physical Exam on day of discharge: Patient is awake, alert, and oriented 3 Vital signs stable Good chest excursion with deep inspiration and expiration No signs or symptoms of DVT; no calf pain Extensor hallucis longus, plantarflexion, and dorsiflexion positive sustained bilateral lower extremities Incision is dry and intact with 2 small spots of dried blood; no erythema, purulence, or signs of infection Optifoam dressings are intact Procedures: L5-S1 minimally invasive posterior lateral decompression and fusion with transforaminal lumbar interbody fusion Patient Condition at Discharge: Stable Plan - Discharge Summary Discharge Rx Participant: Yes New Discharge Prescriptions: New Baclofen 10 mg PO TID PRN #60 tab PRN Reason: Spasms HYDROcodone/APAP 5-325MG [Horace 5] 1 each PO Q6HR PRN #28 tab PRN Reason: Pain Sennosides-Docusate Sodium [Senokot-S] 1 tab PO BID PRN #60 tablet PRN Reason: Constipation No Action sitaGLIPtin [Januvia] 100 mg PO DAILY Multivit-Min/FA/Lycopen/Lutein [Centrum Silver Tablet] 1 each PO DAILY Fish Oil/Dha/Epa [Fish Oil 1,200 mg Fish Oil] 1 each PO DAILY Calcium With Vit D 1 tab PO DAILY Vitamin D (Unknown Dose) 1 tab PO DAILY Empagliflozin [Jardiance] 10 mg PO DAILY Atorvastatin [Lipitor] 10 mg PO DAILY Famotidine 40 mg PO BID Nitrofurantoin Monohyd/M-Cryst [Nitrofurantoin [place]-Mcr 100 mg] 100 mg PO BID Apixaban [Eliquis] 2.5 mg PO BID Discharge Medication List sitaGLIPtin [Januvia] 100 mg PO DAILY 11/17/16 [History] Calcium With Vit D 1 tab PO DAILY 08/02/19 [History] Fish Oil/Dha/Epa [Fish Oil 1,200 mg Fish Oil] 1 each PO DAILY 08/02/19 [History] Multivit-Min/FA/Lycopen/Lutein [Centrum Silver Tablet] 1 each PO DAILY 08/02/19 [History] Empagliflozin [Jardiance] 10 mg PO DAILY 06/04/21 [History] Vitamin D (Unknown Dose) 1 tab PO DAILY 06/04/21 [History] Apixaban [Eliquis] 2.5 mg PO BID 06/23/22 [History] Atorvastatin [Lipitor] 10 mg PO DAILY 06/23/22 [History] Famotidine 40 mg PO BID 02/22/23 [History] Nitrofurantoin Monohyd/M-Cryst [Nitrofurantoin [place]-Mcr 100 mg] 100 mg PO BID 02/22/23 [History] Baclofen 10 mg PO TID PRN #60 tab 03/03/23 [Rx] HYDROcodone/APAP 5-325MG [Horace 5] 1 each PO Q6HR PRN #28 tab 03/03/23 [Rx] Sennosides-Docusate Sodium [Senokot-S] 1 tab PO BID PRN #60 tablet 03/03/23 [Rx] Follow up Appointment(s)/Referral(s): Nawaf Bustillo, FABRICIO [PHYSICIAN [employer]] - 2 Weeks (Patient may follow-up with Nawaf Bustillo PA-C or Dr. Umer Rowell at [facility] in 2-3 weeks following discharge. ) Activity/Diet/Wound Care/Special Instructions: 1. Patient may shower with Optifoam dressing intact. 2. Patient may remove Optifoam dressing in 3 days and shower without a dressing at that time. 3. Patient should refrain from driving until at least after their first follow- up appointment in the office. 4. Patient should avoid excessive bending, twisting, lifting; avoid overhead lifting; no lifting greater than 10 pounds 5. Take medications as prescribed 6. Patient should avoid anti-inflammatory medications over the next 6 weeks postoperatively 7. Patient is encouraged to utilize a walker to aid in ambulation as needed 8. Do not soak in tub Discharge Disposition: HOME SELF-CARE
[2023-03-03] MEDS: ATORVASTATIN 10 MG TAB PO SCH (08:46)
[2023-03-03] MEDS: SENNOSIDES-DOCUSATE SODIUM 1 EACH TAB PO SCH (08:46)
[2023-03-03] MEDS: LINAGLIPTIN 5 MG TABLET PO SCH (08:46)
[2023-03-03] MEDS: DAPAGLIFLOZIN PROPANEDIOL 5 MG TABLET PO SCH (08:46)
[2023-03-03] MEDS: MULTIVITAMINS, THERA 1 EACH TAB PO SCH (08:46)
[2023-03-03] MEDS: CHOLECALCIFEROL 25 MCG (1000 IU) TABLET PO SCH (08:46)
[2023-03-03] MEDS: CALCIUM CARB-VIT D 500 MG-5 MCG TAB PO SCH (08:46)
[2023-03-03] MEDS: FAMOTIDINE 20 MG TAB PO SCH (08:46)
[2023-03-03] MEDS: APIXABAN 2.5 MG TABLET PO SCH (08:46)
[2023-03-03] MEDS: NITROFURANTOIN MONOHYD/M-CRYST 100 MG CAP PO SCH (08:46)
[2023-03-03 09:57] LABS: Basophils % (A) 0 %; Eosinophils # (A) 0.1 k/uL (0-0.7); Eosinophils % (A) 1 %; HCT 37.5 % (34.0-46.0); HGB 12.2 gm/dL (11.4-16.0); Lymphocytes # (A) 1.8 k/uL (1.0-4.8); Lymphocytes % (A) 24 %; MCH 28.7 pg (25.0-35.0); MCHC 32.5 g/dL (31.0-37.0); MCV 88.2 fL (80.0-100.0); Mean Platelet Volume 8.7; Monocytes # (A) 0.7 k/uL (0-1.0); Monocytes % (A) 9 %; Neutrophils # (A) 4.9 k/uL (1.3-7.7); Neutrophils % (A) 64 %; Platelet Count 210 k/uL (150-450); RBC 4.26 m/uL (3.80-5.40); WBC 7.6 k/uL (3.8-10.6)
--- NOTE | 2023-03-03 10:08 | P.PN ---
Subjective Progress Note Date: 03/02/23 This is a 77-year-old female patient who presented for an elective laminectomy and decompression of L5-S1 and facet fusion of L5-S1. Patient has a past medical history of spinal stenosis and lower extremity radiculopathy. Additional medical history includes permanent pacemaker placement in June 2021 secondary to sick sinus syndrome patient also has a history of paroxysmal atrial fibrillation normally maintained on eliquis this has been on hold per surgical protocol. Patient is currently resting comfortably in bed she remains sleepy from anesthesia but is alert and follows commands and questions. Patient denies chest pain or shortness of breath. Patient denies nausea vomiting or diarrhea. Patient denies any urinary burning or frequency. Current vital signs temp 97.7, heart rate 57, respiratory rate 16, blood pressure 131/61 with a pulse ox of 100% on 2 L. On 03/02/2023 patient is alert and oriented 3. Patient is currently postop day 1. Patient reports minimal pain. Patient denies chest pain or shortness breath. Patient denies nausea vomiting or diarrhea. Patient denies any urinary burning or frequency Objective - Vital Signs Vital signs: Vital Signs Temp 97.1 F L 03/02/23 13:52 Pulse 75 03/02/23 13:52 Resp 19 03/02/23 13:52 BP 147/78 03/02/23 13:52 Pulse Ox 97 03/02/23 13:52 FiO2 Intake & Output 03/01/23 03/02/23 03/02/23 18:59 06:59 18:59 Intake Total 2151 Output Total 650 1300 480 Balance 1501 -1300 -480 Weight 58.7 kg Intake: IV 2151 Output: Urine 450 1300 480 Estimated Blood Loss 200 Other: Voiding Method Indwelling Catheter - Exam Head normocephalic Neck supple Lungs clear to auscultation bilaterally no wheezing or crackles Heart regular rate and rhythm S1-S2, no rub or gallop Abdomen is soft nontender nondistended positive bowel sounds no hepatosplenomegaly Extremities no edema Neuro alert and orientated to 3 - Labs CBC & Chem 7: 03/03/23 06:08 03/02/23 06:29 Labs: Abnormal Lab Results - Last 24 Hours (Table) 03/01/23 03/02/23 03/02/23 Range/Units 21:56 05:49 06:29 WBC (4.50-10.00) X 10*3/uL RBC (4.10-5.20) X 10*6/uL MCV (80.0-97.0) FL MCH (27.0-32.0) pg Immature Gran # (0.00-0.04) X 10*3/uL Neutrophils # (1.80-7.70) X 10*3/uL Lymphocytes # (0.90-5.00) X 10*3/uL Monocytes # (0.20-1.00) X 10*3/uL Eosinophils # (0.04-0.35) X 10*3/uL BUN/Creatinine Ratio (12.00-20.00) Ratio Glucose (70-110) mg/dL POC Glucose (mg/dL) 194 H 226 H (70-110) mg/dL Hemoglobin A1c 7.1 H (<=6.0) % 03/02/23 03/02/23 03/02/23 Range/Units 06:29 06:29 11:45 WBC 13.95 H (4.50-10.00) X 10*3/uL RBC 3.85 L (4.10-5.20) X 10*6/uL MCV 99.7 H (80.0-97.0) FL MCH 33.0 H (27.0-32.0) pg Immature Gran # 0.08 H (0.00-0.04) X 10*3/uL Neutrophils # 12.27 H (1.80-7.70) X 10*3/uL Lymphocytes # 0.52 L (0.90-5.00) X 10*3/uL Monocytes # 1.02 H (0.20-1.00) X 10*3/uL Eosinophils # 0.02 L (0.04-0.35) X 10*3/uL BUN/Creatinine Ratio 20.71 H (12.00-20.00) Ratio Glucose 212 H (70-110) mg/dL POC Glucose (mg/dL) 248 H (70-110) mg/dL Hemoglobin A1c (<=6.0) % 03/02/23 Range/Units 16:35 WBC (4.50-10.00) X 10*3/uL RBC (4.10-5.20) X 10*6/uL MCV (80.0-97.0) FL MCH (27.0-32.0) pg Immature Gran # (0.00-0.04) X 10*3/uL Neutrophils # (1.80-7.70) X 10*3/uL Lymphocytes # (0.90-5.00) X 10*3/uL Monocytes # (0.20-1.00) X 10*3/uL Eosinophils # (0.04-0.35) X 10*3/uL BUN/Creatinine Ratio (12.00-20.00) Ratio Glucose (70-110) mg/dL POC Glucose (mg/dL) 163 H (70-110) mg/dL Hemoglobin A1c (<=6.0) % Assessment and Plan Plan: 1. Status post laminectomy and decompression of L5-S1 and fusion of L5 to S1 with Dr. Rowell on 03/01/2023 2. History of spinal stenosis and lower extremity radiculopathy 3. History of permanent pacemaker placement in June 2021 4. History of paroxysmal atrial fibrillation. Patient is maintained on eliquis this has been on hold per surgical services. Will defer to surgical services when patient is to resume this medication 5. History of GERD 6. History of diabetes mellitus type 2 patient started on sliding scale insulin Thank you for this consultation we will continue to follow patient closely throughout stay Laboratory ordered for a.m.
[2023-03-03 10:10] LABS: ALT 27 U/L (4-34); AST 40 U/L (14-36); African American GFR (CKD) >90 (>60 ml/min/1.73 sqM); Albumin 3.4 g/dL (3.5-5.0); Albumin/Globulin Ratio 1.2; Alkaline Phosphatase 88 U/L (38-126); Anion Gap 10 mmol/L; Blood Urea Nitrogen 13 mg/dL (7-17); Calcium 9.3 mg/dL (8.4-10.2); Carbon Dioxide 22 mmol/L (22-30); Chloride 105 mmol/L (98-107); Globulin 2.8 g/dL; Glucose 186 mg/dL (74-99); Non-African American GFR(CKD) 84 (>60 ml/min/1.73 sqM); Potassium 3.7 mmol/L (3.5-5.1); Sodium 137 mmol/L (137-145); Total Bilirubin 1.2 mg/dL (0.2-1.3); Total Protein 6.2 g/dL (6.3-8.2)
--- NOTE | 2023-03-03 10:10 | P.PN ---
Subjective Progress Note Date: 03/03/23 This is a 77-year-old female patient who presented for an elective laminectomy and decompression of L5-S1 and facet fusion of L5-S1. Patient has a past medical history of spinal stenosis and lower extremity radiculopathy. Additional medical history includes permanent pacemaker placement in June 2021 secondary to sick sinus syndrome patient also has a history of paroxysmal atrial fibrillation normally maintained on eliquis this has been on hold per surgical protocol. Patient is currently resting comfortably in bed she remains sleepy from anesthesia but is alert and follows commands and questions. Patient denies chest pain or shortness of breath. Patient denies nausea vomiting or diarrhea. Patient denies any urinary burning or frequency. Current vital signs temp 97.7, heart rate 57, respiratory rate 16, blood pressure 131/61 with a pulse ox of 100% on 2 L. On 03/02/2023 patient is alert and oriented 3. Patient is currently postop day 1. Patient reports minimal pain. Patient denies chest pain or shortness breath. Patient denies nausea vomiting or diarrhea. Patient denies any urinary burning or frequency On 03/03/2023 patient alert and oriented 3. Patient currently postop day 2. Discharge placed per surgical services. Patient has been maintained on home dose eliquis per surgical services. Patient to follow-up with surgeon for further management outpatient. Patient denies chest pain or shortness breath. Patient denies nausea vomiting or diarrhea. Patient denies any urinary burning or frequency. Current vital signs 73, heart rate 81, respiratory rate 18, blood pressure 152/70 with a pulse ox of 97% on room air Objective - Vital Signs Vital signs: Vital Signs Temp 98.3 F 03/03/23 07:03 Pulse 81 03/03/23 07:30 Resp 18 03/03/23 07:30 BP 152/70 03/03/23 07:03 Pulse Ox 97 03/03/23 07:03 FiO2 Intake & Output 03/02/23 03/03/23 03/03/23 18:59 06:59 18:59 Intake Total 900 Output Total 1230 714 Balance -1230 186 Intake: Oral 900 Output: Urine 1230 200 Straight 750 Post Void Residual 514 Other: Voiding Method Toilet Toilet # Voids 8 6 1 - Exam Head normocephalic Neck supple Lungs clear to auscultation bilaterally no wheezing or crackles Heart regular rate and rhythm S1-S2, no rub or gallop Abdomen is soft nontender nondistended positive bowel sounds no hep atosplenomegaly Extremities no edema Neuro alert and orientated to 3 - Labs CBC & Chem 7: 03/03/23 06:08 03/02/23 06:29 Labs: Abnormal Lab Results - Last 24 Hours (Table) 03/02/23 03/02/23 03/02/23 Range/Units 06:29 06:29 06:29 WBC 13.95 H (4.50-10.00) X 10*3/uL RBC 3.85 L (4.10-5.20) X 10*6/uL MCV 99.7 H (80.0-97.0) FL MCH 33.0 H (27.0-32.0) pg Immature Gran # 0.08 H (0.00-0.04) X 10*3/uL Neutrophils # 12.27 H (1.80-7.70) X 10*3/uL Lymphocytes # 0.52 L (0.90-5.00) X 10*3/uL Monocytes # 1.02 H (0.20-1.00) X 10*3/uL Eosinophils # 0.02 L (0.04-0.35) X 10*3/uL BUN/Creatinine Ratio 20.71 H (12.00-20.00) Ratio Glucose 212 H (70-110) mg/dL POC Glucose (mg/dL) (70-110) mg/dL Hemoglobin A1c 7.1 H (<=6.0) % 03/02/23 03/02/23 03/02/23 Range/Units 11:45 16:35 20:48 WBC (4.50-10.00) X 10*3/uL RBC (4.10-5.20) X 10*6/uL MCV (80.0-97.0) FL MCH (27.0-32.0) pg Immature Gran # (0.00-0.04) X 10*3/uL Neutrophils # (1.80-7.70) X 10*3/uL Lymphocytes # (0.90-5.00) X 10*3/uL Monocytes # (0.20-1.00) X 10*3/uL Eosinophils # (0.04-0.35) X 10*3/uL BUN/Creatinine Ratio (12.00-20.00) Ratio Glucose (70-110) mg/dL POC Glucose (mg/dL) 248 H 163 H 168 H (70-110) mg/dL Hemoglobin A1c (<=6.0) % 03/03/23 Range/Units 05:46 WBC (4.50-10.00) X 10*3/uL RBC (4.10-5.20) X 10*6/uL MCV (80.0-97.0) FL MCH (27.0-32.0) pg Immature Gran # (0.00-0.04) X 10*3/uL Neutrophils # (1.80-7.70) X 10*3/uL Lymphocytes # (0.90-5.00) X 10*3/uL Monocytes # (0.20-1.00) X 10*3/uL Eosinophils # (0.04-0.35) X 10*3/uL BUN/Creatinine Ratio (12.00-20.00) Ratio Glucose (70-110) mg/dL POC Glucose (mg/dL) 180 H (70-110) mg/dL Hemoglobin A1c (<=6.0) % Assessment and Plan Plan: 1. Status post laminectomy and decompression of L5-S1 and fusion of L5 to S1 with Dr. Rowell on 03/01/2023 2. History of spinal stenosis and lower extremity radiculopathy 3. History of permanent pacemaker placement in June 2021 4. History of paroxysmal atrial fibrillation. Patient is maintained on eliquis this has been on hold per surgical services. Will defer to surgical services when patient is to resume this medication 5. History of GERD 6. History of diabetes mellitus type 2 patient started on sliding scale insulin Thank you for this consultation we will continue to follow patient closely throughout stay Laboratory ordered for a.m.
[2023-03-03 11:32] LABS: Glucose,Whole Blood 172 mg/dL (70-110)
== END 2023-03-03 13:05 | disposition home or self-care (01) ==
LOC: OR 06:23 → 4SSUR 11:35 → OR 03-02 15:05
PROVIDERS: ADMIT Orthopaedic Surgery Orthopaedic Surgery of the Spine; ATTEND Orthopaedic Surgery Orthopaedic Surgery of the Spine
DX: M48.07 Spinal stenosis, lumbosacral region (principal); M51.17 Intervertebral disc disorders with radiculopathy, lumbosacral region; M47.897 Other spondylosis, lumbosacral region; E78.5 Hyperlipidemia, unspecified; E11.9 Type 2 diabetes mellitus without complications; I48.0 Paroxysmal atrial fibrillation; I10 Essential (primary) hypertension; M19.90 Unspecified osteoarthritis, unspecified site; Z79.899 Other long term (current) drug therapy; Z79.01 Long term (current) use of anticoagulants; Z79.82 Long term (current) use of aspirin; Z95.0 Presence of cardiac pacemaker; Z96.651 Presence of right artificial knee joint; Z79.84 Long term (current) use of oral hypoglycemic drugs; Z88.5 Allergy status to narcotic agent
CPT/HCPCS: 22633; 22853; 22840; 20931; 20936; 96365; 96366; 96361; 97116; 97161; 97166; 80053; 80048; 85025 ×2; 83036; 72100; G0378 ×2; C1713 ×2; C1762; J2250; J0330; J2710; J0690 ×2; J2405; J2001; J3010; J2704; J1170 ×2; J2371